=== PATIENT | female | born 1965 | race Caucasian/White ===

== ENCOUNTER 2019-09-28 07:45 | Outpatient (CLI) | payer OTHER, SELFPAY ==
--- NOTE | ~2019-09-28 | MM_ITS ---
EXAMINATION: MM screening rocio BI w will HISTORY: Screening mammogram TECHNIQUE: Craniocaudal and mediolateral oblique 3-D tomosynthesis images were obtained and synthetic 2-D images were generated. CAD analysis was submitted and interpreted. COMPARISON: Comparison to multiple prior studies sequentially, with oldest reviewed study dated 07/2012. BREAST PARENCHYMAL COMPOSITION: The breasts are heterogeneously dense, which may obscure small masses . FINDINGS: There is no evidence of suspicious mass, calcification, or architectural distortion to sugg est malignancy in either breast. There has been no suspicious interval change. IMPRESSION: 1. No mammographic evidence of malignancy. 2. Recommend routine screening mammography in one year. BI-RADS Category 1: Negative Reviewed, dictated and finalized at location A.
--- NOTE | ~2019-09-28 | DEXA_ITS ---
Bone Density Report Name: Keara Sharp Age: 54 Sex: Female Ethnicity: White Date of : 1965 Indication: postmenopausal; hysterectomy; Referring Provider: MATY CERNA Study: Bone densitometry was performed. Exam Date: September 28, 2019 Accession number: [id number] Bone Density: Region BMD T-score Z-score Classification AP Spine (L1, L2, L3) 1.145 1.2 2.1 Normal Femoral Neck (Left) 0.929 0.7 1.7 Normal Total Hip (Left) 1.092 1.2 1.8 Normal Total Hip Bilateral Avg 1.094 1.2 1.8 Normal Femoral Neck (Right) 0.900 0.5 1.4 Normal Total Hip (Right) 1.094 1.2 1.8 Normal World Health Organization criteria for BMD impression classify patients as: Normal (T-score at or above -1.0), Osteopenia (T-score between -1.0 and -2.5), or Osteoporosis (T-score at or below -2.5). 10-year Fracture Risk: FRAX not reported because: All T-scores for Spine Total, Hip Total, Femoral Neck at or above -1.0 Clinical Information Provided by Patient: Smokes Has the following medical conditions: Hysterectomy Patient maximum height was 64.5 Menopause Age: 27 Drinks caffeinated beverages Onset of menses at age 14 Number of children 2 Impression: The patient has normal bone mass. The patient has risk factors, including: smoking. Discussion: BONE DENSITY IS ABOVE THE MINIMUM DESIRABLE LEVEL AT ALL SKELETAL SITES TESTED. This patient?s bone mineral density is above the minimum desirable level (T-score -1.0 or better) at all sites measured. The patient should follow a healthful lifestyle (good nutrition with adequate calcium and vitamin D, and appropriate weight-bearing exercise). Follow-Up: Consider repeating this study in 5 years or sooner if there is some new clinical indication. Reported by: HARSHA on 09/28/2019 8:16:00 AM. Reviewed, dictated and finalized at location AAndre SOTOMAYOR
== END 2019-09-28 07:46 | disposition home or self-care (01) ==
LOC: ANHIMG 07:48
PROVIDERS: PCP Family Medicine; Visit Provider Family Medicine
DX: Z12.31 Encounter for screening mammogram for malignant neoplasm of breast (principal); Z78.0 Asymptomatic menopausal state
CPT/HCPCS: 77063; 77067; 77080

== ENCOUNTER 2019-10-07 00:56 | Outpatient (CLI) | payer OTHER, SELFPAY ==
[2019-10-07 18:07] LABS: SARS-CoV-2 RNA PCR Negative
== END 2019-10-07 00:57 | disposition home or self-care (01) ==
LOC: ANHCOVIDDT 00:56
PROVIDERS: PCP Family Medicine; Visit Provider Internal Medicine Gastroenterology
DX: Z01.812 Encounter for preprocedural laboratory examination (principal); Z11.59 Encounter for screening for other viral diseases
CPT/HCPCS: 87635; C9803; U0003

== ENCOUNTER 2019-10-09 02:21 | Day surgery (SDC) | payer OTHER, SELFPAY ==
[2019-10-09 07:10] VITALS: BP 116/61; PULSE 73; RESP 18; TEMP 36.6; O2SAT 97; BMI 33.2
--- NOTE | 2019-10-09 07:22 | WPDANESEPPF ---
Anes - Initial Pre Proc Eval Procedure: Operation Date: 10/09/19 08:30 Proposed Procedures p Screening Colonoscopy - Evan Higgins MD Date/Time: 10/09/19 07:22 Surgeon: Evan Higgins MD Pre Op Diagnosis: hx colon polyps, fam hx colon CA Patient Data Age: 54 Gender: F Height: 5 ft 4 in Weight: 87.7 kg Last Vital Signs Temp 36.6 C 10/09/19 07:10 Pulse 73 10/09/19 07:10 Resp 18 10/09/19 07:10 BP 116/61 10/09/19 07:10 Pulse Ox 97 10/09/19 07:10 Allergies Allergy/AdvReac Type Severity Reaction Status Date / Time azithromycin Allergy Mild stomach Verified 10/09/19 07:09 pain latex Allergy Mild Rash Verified 10/09/19 07:09 rosuvastatin Allergy Unknown Muscle pain Verified 10/09/19 07:09 Home Medications Medication Instructions Recorded Confirmed Type aspirin 81 mg tablet,delayed 81 mg PO DAILY 06/02/19 10/05/19 History release trazodone 150 mg tablet 150 mg PO DAILY tablet 06/02/19 10/05/19 History valacyclovir 1 gram tablet 1,000 mg PO DAILY #90 tablet 07/20/19 10/05/19 Rx paroxetine HCl 20 mg tablet 40 mg PO DAILY #90 tablet 07/29/19 10/05/19 Rx Crestor 5 mg tablet 5 mg PO DAILY #90 tablet NS 09/17/19 10/05/19 Rx Patient hx anesthesia problems: none Family hx anesthesia problems: none PMFSH Past Medical History Medical History Asthma Bronchitis Depression Deviated septum GERD (gastroesophageal reflux disease) NEGRETE (headache) Herpes Herpesviral keratitis History of chicken pox Hypercholesteremia Influenza Mild intermittent asthma with (acute) exacerbation Panic disorder Pneumonia Rectal polyp 2013 colonoscopy hemmies/no polyps/ repeat in 5 years Seizures Vertigo Surgical History Surgical History History of appendectomy History of ear surgery History of hysterectomy (~1993) partial History of sinus surgery (~2018) History of spinal surgery (~2006) Family History Family History Mother Depression Family history of malignant neoplasm of uterus Family history of malignant neoplasm of breast in first degree relative Father Carcinoma of colon Social History Social History Smoking packs per day: 0.5 Smoking cigarettes per day: 10.0 Years smoked: 40 Smoking pack-years: 20.00 Smoking status: Current every day smoker Tobacco type: cigarettes Second hand tobacco smoke exposure: Yes Alcohol intake: current Gender identity (if verbalized by the patient): Female Anes - Eval Final PreProcedure Day of Procedure 10/09/19 07:22 Patient weight: obese Heart: regular rate and rhythm Lungs: decreased breath sounds Airway: Mallampati scale class II Neurological: alert and oriented Last oral intake: >/= 8 hours ASA classification: III Emergent: no Anesthetic plan: proceed Anesthesia type and monitoring: general GIVS and standard monitoring Informed Consent: The patient's anesthetic plan and its attendant risks and benefits were discussed with the patient/family/POA. Questions were solicited and answers provided to the satisfaction of the patient/family/POA.
[2019-10-09] MEDS: LACTATED RINGERS 1,000 ML 150 ML IV CONT (07:32)
--- NOTE | 2019-10-09 07:46 | WPDGICN ---
Assessment and Plan Assessment and plan (1) Family history of colon cancer in father: Code(s): Z80.0 - Family history of malignant neoplasm of digestive organs Status: Acute Assessment and Plan: Patient has had colon polyps in the past. Her family history is significant that her father had colon cancer for these reasons surveillance colonoscopy will be performed at this time. follow-up colonoscopy at 5 year intervals is advised. (2) History of colon polyps: Code(s): Z86.010 - Personal history of colonic polyps Status: Acute GI Consult Note Consult date/time: 10/09/19 07:46 HPI: Keara Sharp is a 54 year old female seen in evaluation at the request of Dr Estrellita Han. Patient presents for surveillance colonoscopy. Patient's current weight appetite bowel movements are normal. She denies abdominal pain. She denies any blood in her stools. Her family history is significant that her father has had colon cancer. Patient herself has had colon polyps in the past. Her most recent colonoscopy was 2013. Patient currently denies any blood in her stools or bowel habits are normal. Review of Systems Review of Systems: All systems reviewed & are unremarkable except as noted in HPI and below PMFSH Past Medical History Medical History Asthma Bronchitis Depression Deviated septum GERD (gastroesophageal reflux disease) NEGRETE (headache) Herpes Herpesviral keratitis History of chicken pox Hypercholesteremia Influenza Mild intermittent asthma with (acute) exacerbation Panic disorder Pneumonia Rectal polyp 2013 colonoscopy hemmies/no polyps/ repeat in 5 years Seizures Vertigo Surgical History Surgical History History of appendectomy History of ear surgery History of hysterectomy (~1993) partial History of sinus surgery (~2019) History of spinal surgery (~2006) Family History Family History Mother Depression Family history of malignant neoplasm of uterus Family history of malignant neoplasm of breast in first degree relative Father Carcinoma of colon Social History Social History Smoking packs per day: 0.5 Smoking cigarettes per day: 10.0 Years smoked: 40 Smoking pack-years: 20.00 Smoking status: Current every day smoker Tobacco type: cigarettes Second hand tobacco smoke exposure: Yes Alcohol intake: current Gender identity (if verbalized by the patient): Female Meds Home Medications and Allergies Home Medications Medication Instructions Recorded Confirmed Type aspirin 81 mg tablet,delayed 81 mg PO DAILY 06/02/19 10/05/19 History release trazodone 150 mg tablet 150 mg PO DAILY tablet 06/02/19 10/05/19 History valacyclovir 1 gram tablet 1,000 mg PO DAILY #90 tablet 07/20/19 10/05/19 Rx paroxetine HCl 20 mg tablet 40 mg PO DAILY #90 tablet 07/29/19 10/05/19 Rx Crestor 5 mg tablet 5 mg PO DAILY #90 tablet NS 09/17/19 10/05/19 Rx Allergies Allergy/AdvReac Type Severity Reaction Status Date / Time azithromycin Allergy Mild stomach Verified 10/09/19 07:09 pain latex Allergy Mild Rash Verified 10/09/19 07:09 rosuvastatin Allergy Unknown Muscle pain Verified 10/09/19 07:09 Vital Signs Vital Signs - 24 hr 10/09/19 07:10 Temperature 97.9 F Pulse Rate 73 Respiratory Rate 18 Blood Pressure 116/61 Pulse Oximetry 97 Exam Narrative: Exam Narrative: Physical exam reveals Vital Signs to be stable. HEENT exam unremarkable. Lungs are clear to auscultation and percussion. Heart is without murmur or extra sounds. Abdominal exam bowel sounds are present soft nontender with no hepatosplenomegaly. Digital external rectal exam is normal.
[2019-10-09 08:42] VITALS: BP 136/79; PULSE 61; RESP 15; O2SAT 100
[2019-10-09 08:52] VITALS: BP 105/63; PULSE 58; RESP 20; O2SAT 97
[2019-10-09 09:02] VITALS: BP 117/73; PULSE 57; RESP 18; O2SAT 98
== END 2019-10-09 09:24 | disposition home or self-care (01) ==
PROVIDERS: PCP Family Medicine; Visit Provider Internal Medicine Gastroenterology
PROC: 0DJD8ZZ Inspection of Lower Intestinal Tract, Via Natural or Artificial Opening Endoscopic (ICD-10-PCS; CPT 45378; principal; 2019-10-09 08:30)
DX: Z12.11 Encounter for screening for malignant neoplasm of colon (principal); K62.1 Rectal polyp; K64.8 Other hemorrhoids; Z80.0 Family history of malignant neoplasm of digestive organs; E78.00 Pure hypercholesterolemia, unspecified; K21.9 Gastro-esophageal reflux disease without esophagitis; J45.20 Mild intermittent asthma, uncomplicated; F32.9 Major depressive disorder, single episode, unspecified; B00.9 Herpesviral infection, unspecified; Z79.82 Long term (current) use of aspirin; F17.210 Nicotine dependence, cigarettes, uncomplicated; E66.9 Obesity, unspecified; Z68.33 Body mass index [BMI] 33.0-33.9, adult
CPT/HCPCS: 45385; 87635; 88305; C9803; J2704; J7120; U0003

== ENCOUNTER → 2020-02-10 08:41 | Outpatient (CLI) | payer OTHER, SELFPAY ==
--- NOTE | ~2020-02-10 | MR_ITS ---
EXAMINATION: MR brain/brain stem wo/w con EXAM DATE: 02/10/2020 09:31 INDICATION: Headache pain/ persistent headaches/ wakes with headache. TECHNIQUE: Magnetic resonance imaging (MRI) of the brain/brain stem obtained without contrast. Sagit marko T1, axial diffusion, gradient echo (T2*), T1, T2, FLAIR sequences obtained. Patient was then inj ected with 17 cc intravenous Multihance contrast. Axial and coronal postcontrast T1 weighted sequence s obtained. There is no prior study for comparison. FINDINGS: There are no areas of restricted diffusion to suggest acute infarction. There is no acute hemorrhage seen on the T2*, a hemosiderin sensitive sequence. No intraparenchymal brain mass. The ve ntricles are normal in size. There are no extra-axial collections. Flow voids are seen in the cereb ral arteries on the T2-weighted sequences consistent with their expected patency. The orbits are unr emarkable. Soft tissue is unremarkable. Surgical changes from right-sided mastoidectomy. There are no areas of abnormal enhancement on the post contrast images. IMPRESSION: 1. Unremarkable brain MRI examination. Reviewed, dictated and finalized at location A. TECHNOLOGIST
[2020-02-10 09:09] LABS: Estimated Glomerular Filt Rate > 60
== END ==
PROVIDERS: Visit Provider Family Medicine
DX: R51.9 Headache, unspecified (principal)
CPT/HCPCS: 70553; A9577

== ENCOUNTER → 2020-05-26 16:53 | Outpatient (CLI) | payer OTHER, SELFPAY ==
--- NOTE | ~2020-05-26 | XR_ITS ---
EXAMINATION: XR shoulder RT min 2V DATE: 05/26/2020 17:30 INDICATION: Right shoulder pain. TECHNIQUE: 4 views of right shoulder were obtained. COMPARISON: None. FINDINGS: Bone alignment is normal. No fracture. There is mild osteoarthritis of glenohumeral joint a nd severe osteoarthritis of acromioclavicular joint. IMPRESSION: 1. Polyarticular osteoarthritis. Reviewed, dictated and finalized at location A. [employer] COUNTY ATTORNEY
--- NOTE | ~2020-05-26 | XR_ITS ---
EXAMINATION: XR shoulder LT min 2V DATE: 05/26/2020 17:30 INDICATION: Left shoulder pain. TECHNIQUE: 4 views of left shoulder were obtained. COMPARISON: None. FINDINGS: Bone alignment is normal. No fracture. There is mild osteoarthritis of glenohumeral joint a nd severe osteoarthritis of the acromioclavicular joint. There is calcific tendinitis of the rotator cuff. Calcified left hilar and mediastinal lymph nodes are consistent with old granulomatous disease. IMPRESSION: 1. Polyarticular osteoarthritis. 2. Calcific tendinitis of left rotator cuff. Reviewed, dictated and finalized at location A. UCTION OPERATIONS MANAGER
--- NOTE | ~2020-05-26 | XR_ITS ---
EXAMINATION: XR hand BI arthritis min 3V DATE: 05/26/2020 17:30 INDICATION: Right hand pain. TECHNIQUE: 4 views of right hand and 4 views of left hand were obtained. COMPARISON: None. FINDINGS: RIGHT HAND: Bone alignment is normal. No fracture. There is mild osteoarthritis of first interphalang eal joint and second-fifth distal interphalangeal joints. LEFT HAND: Bone alignment is normal. No fracture. There is mild osteoarthritis of first carpometacarp al joint, first interphalangeal joint, and second, third, and fifth distal interphalangeal joints. IMPRESSION: 1. Mild polyarticular osteoarthritis. Reviewed, dictated and finalized at location A. [employer]
== END ==
PROVIDERS: Visit Provider Family Medicine
DX: M79.641 Pain in right hand (principal); M89.49 Other hypertrophic osteoarthropathy, multiple sites; M75.32 Calcific tendinitis of left shoulder
CPT/HCPCS: 73030; 73130

== ENCOUNTER 2020-07-20 16:30 | Outpatient (RCR) | payer OTHER, SELFPAY ==
--- NOTE | 2020-06-13 10:18 | PTOPEVAL ---
PHYSICAL THERAPY EVALUATION Thank you for referring Keara Sharp to [facility].? Keara has been evaluated for the dx of nissa. shoulder and hand pain/OA. The patient is scheduled to be seen for therapy?2 x/week for 4 weeks. Please review, sign, date and return this plan of care JOSE. I agree with and certify that the following plan of care is medically necessary. Referring Physician Date Attending Provider: Estrellita Han MD *PT Outpatient Evaluation Start: 06/13/20 08:30 Freq: Status: Active Protocol: Document 06/13/20 08:30 [facility] (Rec: 06/13/20 09:42 MLV [id number]) Assessment Status Evaluation Evaluation Information Problem Diagnosis nissa. shoulder pain and hand pain Onset April 2020 Cause none Additional Evaluation Detail The patient has had pain on and off for years with occasional hand numbness. The pain became more constant and more severe April 2020. 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 The shoulder pain is aggravated by driving ( especially bus at work), reaching overhead/behind back. The pain progresses across shoulder blades. The patient uses a heating pad very regularly. 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 The patient helps with a house rehab project with her spouse. Diagnostic Tests X-Rays For This Problem Yes: severe OA nissa shoulders; hand xrays results unknown by patient Previous Treatments Previous Treatments For This Problem none Pain Assessment Timing of Pain Assessment Timing of Pain Assessment Assessment Pain Scale Pain Scale Used Numeric (1 - 10) Self Report Pain Assessment Bilateral Hand(s) Reported Pain Level 3 Pain Description Aching,Heavy,Tightness Pain Frequency Chronic,Continuous Greatest Pain Intensity 9 Pain Aggravating Factors Lifting Other Pain Aggravating Factors gripping Bilateral Shoulder(s) Reported Pain Level 0 Pain Description Achi
--- NOTE | 2020-06-24 15:25 | PCPTNOTE ---
Patient did not show up for scheduled appointment this date. Patient had eye appt. at same time. Plans to be here at next appt. on 07/04.
--- NOTE | 2020-07-18 13:46 | PCPTNOTE ---
Patient called & cancelled scheduled appointment this date due to waiting for re-eval to start aquatic.
--- NOTE | 2020-07-20 17:12 | PTOPEVAL ---
PHYSICAL THERAPY DISCHARGE SUMMARY Thank you for referring Keara Sharp to [facility].? The patient has been seen 7 visits for the dx of nissa. shoulder and hand pain. Pt has had minimal improvements and has peaked with skilled PT needs. DC PT. Please review, sign, date and return this plan of care JOSE. I agree with and certify the following plan of care. Referring Physician Date Attending Provider: Estrellita Han MD *PT Outpatient Discharge Start: 06/13/20 08:30 Freq: Status: Active Protocol: Document 07/20/20 16:24 [facility] (Rec: 07/20/20 17:03 MLV [id number]) Therapy Assessment Status Assessment Status Assessment Status Discharge Evaluation Information Problem Diagnosis nissa. 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 The patient was assessed by ortho MD and has no surgical issues. Primary MD has changed her meds and pt started new drug last night. The patient has pain through nissa. shoulders and scapulae at rest and worse with any mild activities. Pt wears medicated patches at night with partial relief. Patient reports no relief with therapy to this point and gets only temporary relief from exercises. Pt doing exercises 1 a day. Pain Assessment Pain Scale Pain Scale Used Numeric (1 - 10) Self Report Pain Assessment Bilateral Hand(s) Reported Pain Level 4 Other Pain Aggravating Factors no pattern to pain Bilateral Shoulder(s) Reported Pain Level 9 Additional Pain Comments mild guarding/inconsistent Pain Score Pain Score 4,9: Self Report Interventions Used Interventions Used By Clinicians Education,Electrical Stimulation,Exercise,Heat Pain Relief Interventions Used By Heat,Ice,Inactivity/Rest, Patient Medication Cervical and Lumbar ROM Cervical ROM Cervical Flexion (0-60) 60 Query Text:Active in Degrees Cervical Extension (0-70) 40 Query Text:Active in Degrees Cervical Lateral Flexion Right (0-50) 30 Query Text:Active in Degrees
== END 2020-07-21 07:43 | disposition home or self-care (01) ==
LOC: ANHPT 16:30
PROVIDERS: PCP Family Medicine; Visit Provider Family Medicine
DX: M25.511 Pain in right shoulder (principal); M25.512 Pain in left shoulder; M79.641 Pain in right hand; M79.642 Pain in left hand; G89.29 Other chronic pain
CPT/HCPCS: 97014; 97110; 97162; 97530; G0283

== ENCOUNTER → 2021-01-31 17:45 | Outpatient (CLI) | payer OTHER, SELFPAY ==
--- NOTE | ~2021-01-31 | MR_ITS ---
EXAMINATION: MR cervical spine wo con EXAM DATE: 01/31/2021 19:12 INDICATION: Radiculitis. Bilateral scapular pain, bilateral arm numbness. TECHNIQUE: Multi-sequential, multiplanar MR images of the cervical spine were obtained without contra st. Axial T2, axial T2 MERGE sequence. Sagittal T1, T2, T2 fat saturation images also obtained. Th ere is no prior study for comparison. FINDINGS: Surgical changes from right mastoidectomy. There is moderate loss of the C4-5 disc height, mild to moderate at C5-6. The vertebral bodies are aligned in the AP dimension. The spinal cord sign al intensity and intrinsic morphology is normal. Cervicomedullary junction is normal in appearance. T here are no suspicious marrow signal abnormalities. Level by level evaluation: C2-C3: Disc does not extend beyond the endplate margin. Uncovertebral joint arthropathy: None. Facet joint arthropathy: Mild. Neural foraminal stenosis: No stenosis. Central canal stenosis: No stenosis. C3-C4: There is a minimal diffuse disc bulge. Uncovertebral joint arthropathy: Mild right, minimal left. Facet joint arthropathy: Mild to moderate bilateral. Neural foraminal stenosis: Mild right. Central canal stenosis: Minimal. C4-C5: There is a mild diffuse disc bulge asymmetric to the right Uncovertebral joint arthropathy: Moderate right, mild to moderate left. Facet joint arthropathy: Mild to moderate bilateral. Neural foraminal stenosis: Mild to moderate right, mild left. Central canal stenosis: Mild. C5-C6: Disc does not extend beyond the endplate margin. Uncovertebral joint arthropathy: Mild bilateral. Facet joint arthropathy: Mild to moderate bilateral. Neural foraminal stenosis: No stenosis. Central canal stenosis: No stenosis. C6-C7: There is a mild diffuse disc bulge asymmetric to the right Uncovertebral joint arthropathy: Mild to moderate right, mild left. Facet joint arthropathy: Mild bilateral. Neural foraminal stenosis: Mild right. Central canal stenosis: Mild. C7-T1: Disc does not extend beyond the endplate margin. Uncovertebral joint arthropathy: Mild bilateral. Facet joint arthropathy: Mild to moderate left, mild right. Neural foraminal stenosis: No stenosis. Central canal stenosis: No stenosis. IMPRESSION: 1. Mild to moderate cervical spondylosis. Reviewed, dictated and finalized at location A.
== END ==
PROVIDERS: PCP Family Medicine; Visit Provider Physical Medicine & Rehabilitation Pain Medicine
DX: M54.40 Lumbago with sciatica, unspecified side (principal); M47.892 Other spondylosis, cervical region
CPT/HCPCS: 72141

== ENCOUNTER → 2021-03-13 10:45 | Outpatient (CLI) | payer OTHER, SELFPAY ==
--- NOTE | ~2021-03-13 | MR_ITS ---
EXAMINATION: MR thoracic spine wo con DATE: 03/13/2021 12:00 INDICATION: Dorsalgia, unspecified. TECHNIQUE: Magnetic resonance imaging (MRI) of the thoracic spine was performed without intravenous c ontrast. Sagittal localizer T1-weighted FSE of the cervical spine was obtained. Thoracic spine sequen ilan included sagittal T2-weighted FSE, sagittal T1-weighted FSE, sagittal T2-weighted FS FSE, and axi al T2-weighted FSE. COMPARISON: Cervical spine MRI 01/31/2021 FINDINGS: There is 5 degrees dextrocurvature of thoracic spine. There is kyphosis of thoracic spine. There is moderately decreased disc height at T4-T5, severely decreased disc height from T5-T6 through T8-T9, and moderately decreased disc height from T9-T10 through T12-L1 with endplate remodeling. The re is mildly decreased disc height at multiple levels in upper thoracic spine with endplate remodelin g. The discs are bulging from T5-T6 through T12-L1 with mild central canal stenosis. There is multile merlene facet joint osteoarthritis, severe bilaterally at T2-T3. There is mild neural foraminal stenosis bilaterally at T2-T3. The spinal cord signal intensity is normal. IMPRESSION: 1. Severe thoracic spondylosis. Reviewed, dictated and finalized at location A. OR SALES REPRESENTATIVE
== END ==
PROVIDERS: PCP Family Medicine; Visit Provider Physical Medicine & Rehabilitation Pain Medicine
DX: M47.894 Other spondylosis, thoracic region (principal)
CPT/HCPCS: 72146

== ENCOUNTER → 2021-06-23 11:52 | Outpatient (CLI) | payer OTHER, SELFPAY ==
--- NOTE | ~2021-06-23 | XR_ITS ---
XR sacroiliac joints min 3V DATE: 06/23/2021 13:00 INDICATION: Back pain TECHNIQUE: AP and bilateral oblique views COMPARISON: None FINDINGS: The sacroiliac joints are normally aligned. No fracture or dislocation, erosive change or a nkylosis is noted. Status post interbody spinal fusion at L4-5 and L5-S1. IMPRESSION: Unremarkable sacroiliac joints Reviewed, dictated and finalized at Location A. Reviewed, dictated and finalized at location A.
--- NOTE | ~2021-06-23 | XR_ITS ---
XR hip BI 2V w AP pelvis DATE: 06/23/2021 13:00 INDICATION: Right hip pain. Trochanteric bursitis. TECHNIQUE: AP pelvis. AP and lateral views of each hip. COMPARISON: None FINDINGS: Status post interbody spinal fusion at L4-5 and L5-S1. The pubic symphysis and sacroiliac joints are intact. Hip joint spaces are symmetric and relatively well preserved. No fracture or dislocation, avascular necrosis or bone destruction of either hip. IMPRESSION: No significant abnormality of either hip Reviewed, dictated and finalized at location A.
--- NOTE | ~2021-06-23 | XR_ITS ---
XR lumbar spine min 4V DATE: 06/23/2021 13:00 INDICATION: Right hip pain TECHNIQUE: AP, lateral, coned lateral lumbosacral and bilateral oblique views COMPARISON: None FINDINGS: There is mild thoracolumbar levoscoliosis. There is degenerative spurring of the lower thoracic spine and lumbar spine. Status post surgical interbody spinal fusion at L4-5 and L5-S1.. Mild degenerative disc disease at th e remaining lumbar interspaces. No fracture or bone destruction or spondylolisthesis. The lumbar pedicles are intact. The sacroiliac joints appear unremarkable. IMPRESSION: Levoscoliosis Status post interbody spinal fusion at L4-5 and L5-S1 Mild degenerative disc disease at the remaining lumbar interspaces Reviewed, dictated and finalized at location A.
== END ==
PROVIDERS: Visit Provider Family Medicine
DX: G89.29 Other chronic pain (principal); M53.3 Sacrococcygeal disorders, not elsewhere classified; M70.61 Trochanteric bursitis, right hip; M70.62 Trochanteric bursitis, left hip; Z98.1 Arthrodesis status; M51.36 Other intervertebral disc degeneration, lumbar region
CPT/HCPCS: 72110; 72202; 73521

== ENCOUNTER → 2021-07-10 10:03 | Outpatient (CLI) | payer OTHER, SELFPAY ==
--- NOTE | ~2021-07-10 | CT_ITS ---
EXAMINATION:CT lung screening DATE: 07/10/2021 10:24 INDICATION: Personal history of nicotine dependence. Smoker who quit 1 year ago with 40 pack year his tory. TECHNIQUE: Computed tomography (CT) of the chest was performed without intravenous contrast. Automate d exposure control and iterative reconstruction technique were employed. The dose-length product (DLP ) was 173.80 mGy-cm. COMPARISON: CT abdomen and pelvis 06/15/2016 FINDINGS: There is mild atelectasis bilaterally. A calcified left lung nodule and calcified left beth r and mediastinal lymph nodes are consistent with old granulomatous disease. No pleural effusion. The heart size is normal. No pericardial effusion. There is a small sliding hiatal hernia. There is aletha re thoracic spondylosis. There is mild chronic anterior wedging of multiple vertebral bodies. IMPRESSION: 1. Lung-RADS category 1: Negative. Continue annual screening with noncontrast low-dose chest CT in 12 months. Reviewed, dictated and finalized at location A. IMPRESSION: 1. Lung-RADS category 1: Negative. Continue annual screening with noncontrast l ow-dose chest CT in 12 months.
== END ==
PROVIDERS: PCP Family Medicine; Visit Provider Physician Assistant
DX: Z12.2 Encounter for screening for malignant neoplasm of respiratory organs (principal); Z87.891 Personal history of nicotine dependence
CPT/HCPCS: 71271

== ENCOUNTER 2021-11-08 09:00 | Outpatient (RCR) | payer OTHER, SELFPAY ==
--- NOTE | 2021-09-13 10:57 | PTOPEVAL ---
PHYSICAL THERAPY INITIAL EVALUATION. Thank you for referring Keara Sharp to [facility].? The patient is scheduled to be seen for therapy? 2x/week for 4 weeks. Please review, sign, date and return this plan of care JOSE. I agree with and certify that the following plan of care is medically necessary. Referring Physician Date Attending Provider: Estrellita Han MD *PT Outpatient Evaluation Start: 09/13/21 Evaluation Information Diagnosis Polyarthritis, fibromyalgia Onset chronic Subjective Information Pt report a hx of DDD Query Text:As Reported By Patient/ throughout her spine, with Family intermittent spinal stenosis both in cervical and lumbar, polyarthritis, Jeovanny hip bursitis, and fibromyalgia. 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 She states when she performs as much as she can she needs to rest for the day, however too much inactivity causes her to be stiff and painful afterwards. Pt reports her pain is the best in the morning with just mild pain in her hands, she states by the end of the day her body hurts so bad it feels like her bones are going to break. Previous Treatments Previous Treatments For This Problem Pt states 3 bouts of prior therapy Pain Assessment Self Report Pain Assessment Generalized Reported Pain Level 8 Pain Description Aching,Sharp Pain Frequency Chronic Lowest Pain Intensity 4 Greatest Pain Intensity 11 Cervical and Lumbar ROM Cervical ROM Reason Not Measured WFL/Left,WFL/Right Cervical ROM Comments increased time to complete ROM d/t pain per pt Lumbar ROM Reason Not Measured WFL/Left,WFL/Right Lumbar Flexion Active Ankle Query Text:Hands to: Lumbar Comments increased time to complete Upper Extremity Range of Motion Gross Upper Extremity Range of Motion B shoulder flexion ~120 Comments B shoulder abduction ~90 Lower Extremity Range of Motion General Lower Extremity Range of Motion WFL/Left,WFL/Right Lower Extremity Muscle Strength Testing Gross Lower Extremity Strength BLE grossly 3+/5 - very
--- NOTE | 2021-09-22 11:03 | PCPTNOTE ---
Patient called & cancelled scheduled appointment this date due to her hip bursitis.
--- NOTE | 2021-10-10 11:56 | PTOPEVAL ---
PHYSICAL THERAPY PROGRESS REPORT. Thank you for referring Keara Sharp to [facility] [place] The patient is scheduled to be seen for therapy? 2x/week for 4weeks. Please review, sign, date and return this plan of care JOSE. I agree with and certify that the following plan of care is medically necessary. Referring Physician Date Attending Provider: Estrellita Han MD Evaluation Information Diagnosis Polyarthritis, fibromyalgia Onset chronic Subjective Information Pt states she is doing okay, Query Text:As Reported By Patient/ she states her shoulders are a Family little sore today. She states yesterday she mowed her lawn, planted plants, and was able to make dinner as well after that. She states she also did not need to take a muscle relaxer. A little aches and pains, but nothing major . Pt states she liked aquatic therapy, and states it works well. Pain Assessment Generalized Reported Pain Level 4 Greatest Pain Intensity 8 Cervical and Lumbar ROM Cervical ROM WFL/Left,WFL/Right Cervical ROM Comments no increase pain per report Lumbar ROM Reason Not Measured WFL/Left,WFL/Right Lumbar Flexion Active Ankle Lumbar Comments increased time to complete, d/ t soreness Upper Extremity Range of Motion Gross Upper Extremity Range of Motion B shoulder flexion ~140 Comments B shoulder abduction ~95 Lower Extremity Range of Motion General Lower Extremity Range of Motion WFL/Left,WFL/Right Lower Extremity Muscle Strength Testing Gross Lower Extremity Strength nissa hip flexion 3+/5 - very minimal resistance needed nissa knee flexion/extension 4-/ 5 Balance Assessment Timed Up and Go Test (TUG) (Seconds) 13 Assistive Devices None Comments Initially: 19s without AD 10/10/21: 13s without AD 5 Time Sit to Stand 5 Time Sit to Stand Comments Initially: 33s Without the use Query Text:Normative Data: If Greater of UEs Than 15 Seconds, 74% Increase Risk for 10/10/21: 18s without the use Recurrent Falls of UEs Gait Assessment Ambulation Assistive Devices None Other Gait Observations decreased gait speed, decreased arm swing on R, decreased trunk rotation, mild nissa hip ext rot 2 Minute Walk Total Distance Walked (feet) 415 2 Minute Walk Gait Speed Score (fe
--- NOTE | 2021-10-30 12:37 | PCPTNOTE ---
On 10/30/21, the student, Ortiz Coley, provided care and completed [facility] documentation on this patient. I have reviewed the student's documentation and agree with the findings.
--- NOTE | 2021-11-01 13:06 | PCPTNOTE ---
Patient called & cancelled scheduled appointment 30minutes after start time stating she over slept and her body wasn't feeling it today.
--- NOTE | 2021-11-08 09:51 | PTOPEVAL ---
PHYSICAL THERAPY PROGRESS REPORT AND DISCHARGE SUMMARY. Thank you for referring Keara Sharp to [facility].? The patient is to be discharged from skilled therapy services at this time. Please review, sign, date and return this plan of care JOSE. I agree with and certify that the following plan of care is medically necessary. Referring Physician Date Attending Provider: Estrellita Han MD *PT Outpatient Evaluation Start: 09/13/21 Evaluation Information Diagnosis Polyosteoarthritis, fibromyalgia Onset chronic Subjective Information Pt states she is having a Query Text:As Reported By Patient/ rough day and a rough week Family this week. Pt states her rough weeks are about the same as they were prior to starting therapy. Pt reports the same intensity and frequency of good weeks and bad weeks. Pt states last week she was able to make chicken and dumplings from scratch. Pt reports having a headache today as well. Pt continues to report positive results after pool therapy, and 3 days of pain after completing a session on land. Pain Assessment Generalized Reported Pain Level 9 Pain Frequency Chronic Greatest Pain Intensity 10 Cervical and Lumbar ROM Cervical ROM WFL/Left,WFL/Right Cervical ROM Comments no increase pain per report Lumbar ROM WFL/Left,WFL/Right Lumbar Flexion Active Ankle Lumbar Comments increased time to complete, d/ t soreness Upper Extremity Range of Motion Gross Upper Extremity Range of Motion B shoulder flexion ~120, Comments increased time to complete d/t pain B shoulder abduction ~85, increase time to complete d/t pain this date Lower Extremity Range of Motion General Lower Extremity Range of Motion WFL/Left,WFL/Right Lower Extremity Muscle Strength Testing Gross Lower Extremity Strength nissa hip flexion 4-/5 nissa knee flexion/extension 3+/5 pt demonstrates good functional strength, increased time to complete Upper Extremity Muscle Strength Testing Gross Upper Extremity Strength Comments BUE grossly 3+/5 Posture Posture Evaluation View Posterior
== END 2021-11-08 12:34 | disposition home or self-care (01) ==
LOC: ANHPT 09:00
PROVIDERS: PCP Family Medicine; Visit Provider Family Medicine
DX: M79.7 Fibromyalgia (principal); M15.9 Polyosteoarthritis, unspecified; G89.29 Other chronic pain
CPT/HCPCS: 97014; 97110; 97113; 97161; 97530; G0283

== ENCOUNTER 2022-05-22 15:25 | Outpatient (CLI) | payer OTHER, SELFPAY ==
--- NOTE | ~2022-05-22 | MM_ITS ---
EXAMINATION: MM screening rocio BI w will HISTORY: Screening mammogram TECHNIQUE: Craniocaudal and mediolateral oblique 3-D tomosynthesis images were obtained and synthetic 2-D images were generated. CAD analysis was submitted and interpreted. COMPARISON: 09/28/2019, 03/2015 bilateral screening mammogram examinations BREAST PARENCHYMAL COMPOSITION: The breasts are heterogeneously dense, which may obscure small masses . FINDINGS: Biopsy marker on the right; history of prior benign right breast biopsy. Stable bilateral m ammographic asymmetry since 03/2015. There is no evidence of suspicious mass, calcification, or arch itectural distortion to suggest malignancy in either breast. There has been no suspicious interval ch michel. IMPRESSION: 1. No mammographic evidence of malignancy. 2. Recommend routine screening mammography in one year. BI-RADS Category 2: Benign finding(s). Reviewed, dictated and finalized at location A. EVEL PROVIDER
== END 2022-05-22 15:26 | disposition home or self-care (01) ==
PROVIDERS: PCP Family Medicine; Visit Provider Family Medicine
DX: Z12.31 Encounter for screening mammogram for malignant neoplasm of breast (principal)
CPT/HCPCS: 77063; 77067

== ENCOUNTER 2022-07-20 10:07 | Outpatient (CLI) | payer OTHER, SELFPAY ==
--- NOTE | ~2022-07-20 | CT_ITS ---
EXAMINATION: CT lung screening DATE: 07/20/2022 10:28 INDICATION: Lung cancer screening. History of smoking. TECHNIQUE: Computed tomography (CT) of the chest was performed without intravenous contrast. The dose -length product was 226.91 mGy-cm. Automated exposure control and iterative reconstruction technique were employed. COMPARISON: CT dated 07/10/2021 FINDINGS: Heart size normal. No significant pleural or pericardial effusion. There is evidence for ch ronic granulomatous disease. There is left adrenal thickening, likely hyperplasia. The spleen, liver, pancreas, right adrenal gland and visualized aspects of the kidneys are unremarkable. No thoracic ly mphadenopathy. No endobronchial lesions. No noncalcified pulmonary nodules are identified. Moderate t horacic spondylosis. IMPRESSION: 1. Lung-RADS category 1: Negative. Continue annual screening with noncontrast low-dose chest CT in 12 months. Reviewed, dictated and finalized at location A. IMPRESSION: 1. Lung-RADS category 1: Negative. Continue annual screening with noncontrast l ow-dose chest CT in 12 months.
== END 2022-07-20 10:08 | disposition home or self-care (01) ==
PROVIDERS: PCP Family Medicine; Visit Provider Physician Assistant
DX: Z12.2 Encounter for screening for malignant neoplasm of respiratory organs (principal); Z87.891 Personal history of nicotine dependence
CPT/HCPCS: 71271

== ENCOUNTER 2023-07-09 08:53 | Outpatient (CLI) | payer OTHER, MEDICARE, SELFPAY ==
--- NOTE | ~2023-07-09 | CT_ITS ---
EXAMINATION: CT pelvis wo con DATE: 07/09/2023 09:18 INDICATION: Sacroiliitis, not elsewhere classified. TECHNIQUE: Computed tomography (CT) of the pelvis was performed without intravenous contrast. Automat ed exposure control and iterative reconstruction technique were employed. The dose-length product was 599.89 mGy-cm. COMPARISON: None FINDINGS: There are no dilated loops of bowel. There are no pathologically enlarged lymph nodes. Ther e is no free intraperitoneal fluid. There are changes of anterior fusion procedures at L4-L5 and L5-S 1. There is moderate osteoarthritis of the sacroiliac joints. There is mild osteoarthritis of the hip s. Osteitis pubis is noted. IMPRESSION: 1. Moderate osteoarthritis of the sacroiliac joints. No evidence of inflammatory arthropathy. Reviewed, dictated and finalized at location E. IMPRESSION: 1. Moderate osteoarthritis of the sacroiliac joints. No evidence of inflammator y arthropathy.
--- NOTE | ~2023-07-09 | XR_ITS ---
EXAMINATION: XR pelvis 1-2V DATE: 07/09/2023 09:10 INDICATION: Sacroiliitis. TECHNIQUE: An anteroposterior view of the pelvis was obtained. COMPARISON: Pelvis CT 07/09/23 FINDINGS: There is thoracolumbar levoscoliosis. There are changes of anterior fusion procedures at L4 -L5 and L5-S1. There is moderate osteoarthritis of the sacroiliac joints. The hip joint spaces are no rmal. IMPRESSION: 1. Moderate osteoarthritis of the sacroiliac joints. Reviewed, dictated and finalized at location E.
== END 2023-07-09 08:54 ==
PROVIDERS: PCP Family Medicine; Visit Provider Physical Medicine & Rehabilitation Pain Medicine
DX: M46.1 Sacroiliitis, not elsewhere classified (principal); M53.3 Sacrococcygeal disorders, not elsewhere classified
CPT/HCPCS: 72170; 72192

== ENCOUNTER 2023-07-22 10:26 | Outpatient (CLI) | payer OTHER, MEDICARE, SELFPAY ==
--- NOTE | ~2023-07-22 | CT_ITS ---
EXAMINATION:CT lung screening DATE: 07/22/2023 10:52 INDICATION: Personal history of nicotine dependence. Smoker who quit 3 years ago with 40 pack year hi story. TECHNIQUE: Computed tomography (CT) of the chest was performed without intravenous contrast. Automate d exposure control and iterative reconstruction technique were employed. The dose-length product (DLP ) was 166.73 mGy-cm. COMPARISON: Chest CT 07/20/22 FINDINGS: There is mild emphysema. Calcified left lung nodules and calcified left hilar and mediastin al lymph nodes are consistent with old granulomatous disease. No pleural effusion. The heart size is normal. No pericardial effusion. There is a small sliding hiatal hernia. There is severe thoracic spo ndylosis. There is mild chronic anterior wedging of multiple vertebral bodies. IMPRESSION: 1. Lung-RADS category 1: Negative. Continue annual screening with noncontrast low-dose chest CT in 12 months. Reviewed, dictated and finalized at location E. IMPRESSION: 1. Lung-RADS category 1: Negative. Continue annual screening with noncontrast l ow-dose chest CT in 12 months.
== END 2023-07-22 10:27 | disposition home or self-care (01) ==
LOC: ANHIMG 10:31
PROVIDERS: PCP Family Medicine; Visit Provider Physician Assistant
DX: Z12.2 Encounter for screening for malignant neoplasm of respiratory organs (principal); Z87.891 Personal history of nicotine dependence
CPT/HCPCS: 71271

== ENCOUNTER 2023-08-09 14:08 | Outpatient (CLI) | payer OTHER, MEDICARE, SELFPAY ==
--- NOTE | ~2023-08-09 | CT_ITS ---
EXAMINATION: CT lumbar spine wo con DATE: 08/09/2023 14:22 INDICATION: Lumbar radicular pain. TECHNIQUE: Computed tomography (CT) of the lumbar spine was performed without intravenous contrast. A utomated exposure control and iterative reconstruction technique were employed. The dose-length produ ct was 785.96 mGy-cm. COMPARISON: None FINDINGS: There is 8 degrees levocurvature of thoracolumbar spine. There is mild chronic anterior wed ging of L1 vertebral body. There are changes of anterior fusion procedures at L4-L5 and L5-S1. There is severely decreased disc height at L1-L2, moderately decreased disc height at L2-L3, and mildly dec reased disc height at L3-L4. The following disc levels are specifically discussed: L1-L2: The disc is bulging. There is moderate bilateral facet joint osteoarthritis. There is mild nissa ateral neural foraminal stenosis. There is mild central canal stenosis. L2-L3: The disc is bulging. There is severe bilateral facet joint osteoarthritis. There is mild bilat eral neural foraminal stenosis. There is mild central canal stenosis. L3-L4: The disc is bulging. There is severe bilateral facet joint osteoarthritis. There is mild bilat eral neural foraminal stenosis. There is mild central canal stenosis. L4-L5: There is severe bilateral facet joint osteoarthritis. There is mild bilateral neural foraminal stenosis. There is mild central canal stenosis. L5-S1: There is severe bilateral facet joint osteoarthritis. There is mild bilateral neural foraminal stenosis. There is mild central canal stenosis. IMPRESSION: 1. Severe lumbar spondylosis. 2. Anterior fusion procedures at L4-L5 and L5-S1. Reviewed, dictated and finalized at location A.
== END 2023-08-09 14:09 ==
PROVIDERS: PCP Family Medicine; Visit Provider Physical Medicine & Rehabilitation Pain Medicine
DX: M43.06 Spondylolysis, lumbar region (principal); Z98.1 Arthrodesis status
CPT/HCPCS: 72131

== ENCOUNTER 2023-12-04 08:29 | Outpatient (CLI) | payer OTHER, MEDICARE, SELFPAY ==
--- NOTE | ~2023-12-04 | MM_ITS ---
EXAMINATION: MM screening rocio BI w will HISTORY: Screening TECHNIQUE: Craniocaudal and mediolateral oblique 3-D tomosynthesis images were obtained and synthetic 2-D images were generated. CAD analysis was submitted and interpreted. COMPARISON: Comparison to multiple prior studies sequentially, with oldest reviewed study dated 06/2014. BREAST PARENCHYMAL COMPOSITION: Not dense: There are scattered areas of fibroglandular density. FINDINGS: There is no evidence of suspicious mass, calcification, or architectural distortion to sugg est malignancy in either breast. There has been no suspicious interval change. IMPRESSION: 1. No mammographic evidence of malignancy. 2. Recommend routine screening mammography in one year. BI-RADS Category 1: Negative Reviewed, dictated and finalized at location B.
== END 2023-12-04 08:30 | disposition home or self-care (01) ==
LOC: ANHIMG 08:32
PROVIDERS: PCP Family Medicine; Visit Provider Family Medicine
DX: Z12.31 Encounter for screening mammogram for malignant neoplasm of breast (principal)
CPT/HCPCS: 77063; 77067

== ENCOUNTER 2024-07-29 08:52 | Outpatient (CLI) | payer OTHER, MEDICARE, SELFPAY ==
--- NOTE | ~2024-07-29 | CT_ITS ---
CT Scan of the Chest without Contrast: Clinical Indication: Lung cancer screening, nicotine dependence Technique: Contiguous sections were acquired throughout the chest without intravenous contrast. Dose reduction technique was used on this scan by utilizing automated exposure control and iterative recon struction technique. The dose-length product (DLP) was 152.06 mGy-cm. COMPARISON: 07/22/2023 Findings: There is no evidence of any significant mediastinal, hilar or axillary lymphadenopathy. Calcified med iastinal and left hilar lymph nodes are present. There is no evidence of pleural or pericardial effusion. The lungs are clear, aside from calcified left lower lobe granuloma. Images through the upper abdomen reveal low-density left adrenal nodule, compatible with adenoma. Impression: Lung RADS 1: Negative. 12 month follow-up screening CT advised. Reviewed, dictated and finalized at [facility]. Impression: Lung RADS 1: Negative. 12 month follow-up screening CT advised.
--- OUTSIDE RECORDS SUMMARY | 2024-07-29 09:15 | XMS_ITS ---
Author Organization [facility] daniel Address [address] [facility] [address] [place] [address] Care Team Providers Care Skirt Clipper Name Role Phone Guille BARBOSA, Estrellita Primary Care Provider Unav ailable Dalia Barber [phone] REASON FOR VISIT yd/3 month follow up/flc Encounters Encounter Location Date Provider Diagnosis [facility] [address] [address] [place] [address] 05/15/2024 Dalia Barber Plan Of Treatment Next Appt Details Provider Name:Dalia Barber, 08/05 01:45:00 PM, [address] [facility] [address], [place], [address], Progress Notes * VERAKeara HERNÁNDEZ BDOB:1965 (59 yo F)Acc No.[id number]:05/15/2024 Progress Notes Patient: Erika PONDKeara Provider: Eddie BARBER MD :1965 A ge:58 Y S ex:Female Date:05/15/2024 Address:[address], [address], [facility] Pcp:Estrellita Han MD Subjective: * Chief Complaints: * 1 . Yd/3 month follow up/flc. * Medical History: Objective: * Vitals: Assessment: Plan: * Treatment: * Billing Information: * Visit Code: * Procedure Codes: * Electronic signature of Dalia Barber MD on 07/29/2024 at 09:15 AM CDT Sign off status: Pending * Provider: Eddie BARBER MD Date: 0 05/15/2024 Generated for Ryan cotter/Justin/Saulo on: 0 07/29/2024 09:15 AM CDT
--- OUTSIDE RECORDS SUMMARY | 2024-07-29 09:15 | XMS_ITS | Clinical Summary ---
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 Gender Identity Not on file Sexual Orientation Not on file Plan of Treatment Health Maintenance Due Date Last Done Comments Breast Cancer Screening-Mammogram 1965 Cervical Cancer Screening 1965 Colon Cancer Screening-Colonoscopy 1965 Depression Screening 1965 Hepatitis C Screening 1966 Hepatitis B Screening 1984 Regular Well Visit/Exam 18-64 1984 Zoster Vaccine (1 of 2) 2016 Covid-19 Vaccine (3 - 2023- season) 2023 07/27/2020, 07/05/2020 DTaP/Tdap/Td Vaccine (2 - Td or Tdap) 09/07/2029 09/08/2019 Pneumococcal vaccine <65 Aged Out 08/09/2022, 05/0 04/2022 No longer eligible based on patient's age to complete this topic Influenza Vaccine Completed 02/12/2024, , 01/24/2022, Additional history exists Insurance [facility] CHOICE PLUS MEDICARE Care Teams [employer] Clerk Relationship Specialty Start Date End Date Estrellita Han MD PCP - General 08/01/16
--- OUTSIDE RECORDS SUMMARY | 2024-07-29 09:15 | XMS_ITS | Patient Health Record ---
Author Organization [facility] daniel Address [address] [place] [address] Care Team Providers Care Ethanol Operator Name Role Phone Estrellita Han MD Primary Care Provider Unav ailDalia Ron Unavailable [phone] Allergies Allergen (clinical drug ingredient) Drug/Non Drug Allergy documented on EMR Reaction Allergy Type Onset Date Status ezetimibe Zetia Unknown Drug Allergy Active azithromycin Azithromycin Unknown Drug Allergy A ctive Latex Latex Unknown Allergy Active Substance with 4-wblygal-6-methylgluta ryl-coenzyme A reductase inhibitor mechanism of action (substance) Statins Unknown Drug Allergy Active Results Component Value Reference Range Notes eGFR Reviewed date:02/16/2024 12:16:27 PM Interpretation: Performing Lab:[facility] , [address] [facility] [address] Notes/Report: eGFR 72 >=60 mL/min/1.73 m2 Interpretive Data Reference Interval Normal >/= 90 mL/min/1.73m2 Mildly decreased* 60 - 89 mL/min/1.73m2 Mildly to moderately decreased 45 - 59 mL/min/1.73m2 Moderately to severely decreased 30 - 44 mL/min/1.73m2 Severely decreased 15 - 29 mL/min/1.73m2 Kidney Failure < 15 mL/min/1.73m2 *Relative to young adult level Estimated glomerular filtration rate is determined by the 2020 CKD-EPI equation recommended by the National Kidney [employer] (A Unifying Approach to GFR Estimation: Recommendations of the NKF-ASK Task Force on Reassessing the Inclusion of Race in Diagnosing Kidney Disease, JASN 2020). The CKD-EPI equation should not be used for patients with unstable renal function and has not been validated in children and those over 70. Current interpretive data was last reviewed 2021. Differential Automated Reviewed date:02/16/2024 12:16:20 PM Interpretation: Performing Lab:[facility] , [address] [facility] [address] Notes/Report: Neut Abs 2.4 1.5-6.5 K/cumm ImmGran Abs 0.0 0.0-0.1 K/cumm Lymphocyte Abs 1.9 0.8-3.3 K/cumm [place] Abs 0.5 0.2-0.8 K/cumm Eos Abs 0.1 0.0-0.5 K/cumm Baso Abs 0.0 0.0-0.1 K/cumm Neut Pct 48.6 Interpretive Data Percent cell count reference ranges are not reported, since discordance with absolute values may lead to misinterpretation of CBC data. Current Interpretive Data was last revised on 2017. ImmGran Pct 0.2 Interpretive Data Percent cell count reference ranges are not reported, since discordance with absolute values may lead to misinterpretation of CBC data. Current Interpretive Data was last revised on 2017. Lymph Pct 39.0 Interpretive Data Percent cell count reference ranges are not reported, since discordance with absolute values may lead to misinterpretation of CBC data. Current Interpretive Data was last revised on 2017. [place] Pct 9.3 Interpretive Data Percent cell count reference ranges are not reported, since discordance with absolute values may lead to misinterpretation of CBC data. Current Interpretive Data was last revised on 2017. Eos Pct 2.1 Interpretive Data Percent cell count reference ranges are not reported, since discordance with absolute values may lead to misinterpretation of CBC data. Current Interpretive Data was last revised on 2017. Baso Pct 0.8 Interpretive Data Percent cell count reference ranges are not reported, since discordance with absolute values may lead to misinterpretation of CBC data. Current Interpretive Data was last revised on 2017. SSB Ab Reviewed date:02/16/2024 12:17:57 PM Interpretation: Performing Lab:[facility] , [address] [place] [address]. [facility] [address] Notes/Report: SS B Antibody <0.2 <=0.9 Ab Index Interpretive Data Negative: < 1.0 Ab Index Positive: > or = 1.0 Ab Index Current interpretive data was last revised on 2016. SSA Ab Reviewed date:02/16/2024 12:18:03 PM Interpretation: Performing Lab:[facility] , [address] [place] [address]. [facility] [id number] Notes/Report: SS A Antibody <0.2 <=0.9 Ab Index Interpretive Data Negative: < 1.0 Ab Index Positive: > or = 1.0 Ab Index Current interpretive data was last revised on 2016. Sed Rate Reviewed date:02/16/2024 12:18:32 PM Interpretation: Performing Lab:[facility] , [address] [place] [address]. [facility] [address] Notes/Report: ESR 14 1-30 mm/hr Rheumatoid Factor Reviewed date:02/16/2024 12:18:51 PM Interpretation: Performing Lab:[facility] , [address] [place] [address]. [facility] [address] Notes/Report: RF, Sammy <10 <=15 IUnits/mL QTB Gold Reviewed date:02/17/2024 01:04:43 PM Interpretation: Performing Lab:[facility] , [address] [place] [address]. [facility] [address] Notes/Report: QuantiFERON TB Gold Negative Negative No interferon-gamma response to M. tuberculosis antigens was detected. Latent infection with M. tuberculosis is unlikely. A single negative result does not exclude infection with M. tuberculosis. In patients at high risk for M.tuberculosis infection, a second test should be considered in accordance with the 2017 ATS/IDSA/CDC Clinical Practice Guidelines for Diagnosis of Tuberculosis in Adults and Children [Jairoinsohn DM et. al. Clin. Infect. Dis. 2017;64(2):111-115]. The reference range for the 'TB1 Ag minus Nil Result' and 'TB2 Ag minus Nil Result' is an Interferon-gamma level <0.35 IU/mL. TB-Nil 0.02 TB2-Nil -0.02 Mitogen-Nil 9.97 NIL 0.03 Test Performed by: [facility] [address] [place] [address] Medical Instrument Technician: Smitha Angulo Ph.D.; CLIA# [id number] G6PD Ql Reviewed date:02/16/2024 12:18:09 PM Interpretation: Performing Lab:[facility] , [facility] [facility]. [place] [address] Notes/Report: G6PD, Qual Normal Normal Interp data: G6PD activity should be interpreted in the context of a patient's hematocrit. Hematocrit < 20% may lead to a falsely deficient result, while hematocrit > 50% may lead to a falsely normal result. Current interpretive data was last revised on 2019. Testing performed by: [facility], [address] [place]., [address] Creatine Kinase Reviewed date:02/16/2024 12:18:38 PM Interpretation: Performing Lab:[facility] , [address] [place] [address]. [place] [address] Notes/Report: Total CK 89 30-200 Units/L Comprehensive metabolic pane l (CMP) Reviewed date:02/16/2024 12:18:27 PM Interpretation: Performing Lab:[facility] , [address] [place] [address]. [place] [address] Notes/Report: Sodium 143 135-145 mmol/L Plasma Potassium 4.5 3.3-4.9 mmol/L Chloride 106 97-110 mmol/L Total CO2 25 22-32 mmol/L Anion Gap 12 2-15 mmol/L BUN 16 6-25 mg/dL Creatinine 0.93 0.60-1.10 mg/dL Glucose 101 70-199 mg/dL Interpretive Data Fasting glucose >/= 126 mg/dl is diagnostic for diabetes. Fasting is defined as no caloric intake for at least 8 hours. Fasting glucose between 100 mg/dl to 125 mg/dl is diagnostic of prediabetes. In a patient with classic symptoms of hyperglycemia or hyperglycemic crisis, a random glucose >/= 200 mg/dl is diagnostic for diabetes. In the absence of unequivocal hyperglycemia, results should be confirmed by repeat testing. The classification and Diagnosis of Diabetes Diabetes Care 202; 46: S19-S40. Current interpretive data was last revised 2022. Total Calcium 9.4 8.5-10.3 mg/dL Total Bilirubin 0.3 0.1-1.2 mg/dL Plasma Total Protein 7.2 6.5-8.5 g/dL Albumin 4.5 3.5-5.0 g/dL Alkaline Phosphatase 118 40-130 Units/L ALT 13 7-45 Units/L AST 27 10-45 Units/L CBC w auto diff Reviewed date:02/16/2024 12:18:17 PM Interpretation: Performing Lab:[facility] , [address] [place] [address]. [facility] [address] Notes/Report: WBC 4.8 3.8-9.9 K/cumm Hgb 14.0 11.9-15.5 g/dL Hct 42.4 35.6-45.5 % Platelet Ct 214 150-400 K/cumm MPV 11.1 9.1-12.3 fL RBC 4.31 3.90-5.20 M/cumm MCV 98.4 81.3-96.4 fL MCH 32.5 27.1-33.3 pg MCHC 33.0 32.3-35.7 g/dL RDW CV 13.8 11.1-14.9 % RDW SD 50.5 35.7-48.1 fL NRBC Abs Auto 0.00 0.00-0.01 K/cumm C Reactive Protein Reviewed date:02/16/2024 12:18:44 PM Interpretation: Performing Lab:[facility] , [address] [place] [address]. [facility] [address] Notes/Report: C-Reactive Protein <3.0 <=10.0 mg/L MARIA GUADALUPE reflex titer pattern ALEXIS + dsDNA Reviewed date:02/17/2024 12:56:12 PM Interpretation: Performing Lab:[facility] , [address] [place] [address]. [facility] [address] Notes/Report: MARIA GUADALUPE, Qual Negative Interpretive Data Normal range for MARIA GUADALUPE Qualitative Antibody = Negative. 1. MARIA GUADALUPE is performed using indirect immunofluorescence against HEp-2 cells 2. MARIA GUADALUPE titers are performed on all positive qualitative results. 3. A significantly positive MARIA GUADALUPE result is defined as a positive nuclear fluorescence at a titer of 1:80 or greater. 4. 15% of normal people above age 65 have significantly positive MARIA GUADALUPE results. 5% or less of normal people age 65 or under have significantly positive MARIA GUADALUPE results. Current interpretive data was last revised on 2019. Testing performed by: [facility], [address] [place]., [address] Reason For Referral No Information Medications Medication SIG (Take, Route, Frequency, Duration) Notes Start Date End Date Status Hydroxychloroquine Sulfate 200 MG as directed Orally twice a day Active DULoxetine HCl 60 MG 1 capsule Orally twice a day for 30 day(s) Active valACYclovir HCl 1 GM 1 tablet Orally On ce a day for 10 day(s) Active traZODone HCl 150 MG 1 tablet at bedtime Orally Once a day for 30 day(s) Active Nabumetone 750 MG as directed Orally twice a day Active Leflunomide 20 MG 1 tablet Orally Once a day for 30 days 06/02/2024 08/31/2024 Active PARoxetine HCl 20 MG 1 tablet in the morning Orally Once a day for 30 day(s) Active Pregabalin 150 MG TAKE 1 CAPSULE BY MOUTH TWICE DAILY for 30 06/15/2024 Active Multivitamin Adult Extra C Active Social History Tobacco Control (Standard) Question Answer Notes Additional Findings: Tobacco user e-cigarette Problems Problem Type SNOMED Code ICD Code Onset Dates Problem Status W/U Status Risk Notes Problem 276210799 Rheumatoid arthritis without rheumatoid factor, multiple sites (M06.09) Active confirmed Problem [id number] Fibromyalgia (M79.7) Active confirmed Vital Signs Heart Rate 88 /min 06/02/2024 Temperature 98.0 degrees Fahrenheit 06/02/2024 Blood pressure diastolic 70 mm Hg 06/02/2024 Oximetry 95 % 06/02/2024 Height-cm 164.46 cm 06/02/2024 Weight-kg 93.79 kg 06/02/2024 Height 64.75 in 06/02/2024 Blood pressure systolic 128 mm Hg 06/02/2024 Weight 206.8 lbs 06/02/2024 BMI 34.68 kg/m2 06/02/2024 Encounters Encounter Location Date Provider Diagnosis [facility] [address] [place] [address] 02/14/2024 Dalia Schwartz Rheumatoid arthritis without rheumatoid factor, multiple sites M06.09 ; Fibromyalgia M79.7 and High risk medication use Z79.899 [facility] [address] [place] [address] 03/02/2024 Dalia Schwartz Rheumatoid arthritis without rheumatoid factor, multiple sites M06.09 ; Fibromyalgia M79.7 ; High risk medication use Z79.899 and Decreased GFR R94.4 [facility] [address] [place] [address] 06/02/2024 Dalia Schwartz Rheumatoid arthritis without rheumatoid factor, multiple sites M06.09 ; Fibromyalgia M79.7 ; High risk medication use Z79.899 and Decreased GFR R94.4 Assessments Encounter Date Diagnosis (ICD Code) Assessment Notes Treatment Notes Treatment Clinical Notes Section Notes 03/02/2024 Rheumatoid arthritis without rheumatoid factor, multiple sites (ICD-10 - M06.09) labs discussed with patient, pain better with higher dose of lyrica, will continue lyrica 150mg bid and plaquenil, advised to change relafen to prn due to decreased GFR, return in 3 months 03/02/2024 Fibromyalgia (ICD-10 - M79.7) labs discussed with patient, pain better with higher dose of lyrica, will continue lyrica 150mg bid and plaquenil, advised to change relafen to prn due to decreased GFR, return in 3 months 06/02/2024 Rheumatoid arthritis without rheumatoid factor, multiple sites (ICD-10 - M06.09) symptomatic, start arava 20mg/day, continue plaquenil, cymbalta and lyrica, return in 2 months 02/14/2024 Rheumatoid arthritis without rheumatoid factor, multiple sites (ICD-10 - M06.09) 58 year old female with seronegative rheumatoid arthritis and fibromyalgia. She failed methotrexate. Plaquenil has helped some. Labs will be ordered. She will increase lyrica to 150mg bid. She will continue relafen and cymbalta. Follow up virtual visit will be scheduled. Thank you for referring this patient. cc Dr. Estrellita Han 02/14/2024 Fibromyalgia (ICD-10 - M79.7) 58 year old female with seronegative rheumatoid arthritis and fibromyalgia. She failed methotrexate. Plaquenil has helped some. Labs will be ordered. She will increase lyrica to 150mg bid. She will continue relafen and cymbalta. Follow up virtual visit will be scheduled. Thank you for referring this patient. cc Dr. Estrellita Han 02/14/2024 High risk medication use (ICD-10 - Z79.899) 58 year old female with seronegative rheumatoid arthritis and fibromyalgia. She failed methotrexate. Plaquenil has helped some. Labs will be ordered. She will increase lyrica to 150mg bid. She will continue relafen and cymbalta. Follow up virtual visit will be scheduled. Thank you for referring this patient. cc Dr. Estrellita Han 06/02/2024 Fibromyalgia (ICD-10 - M79.7) symptomatic, start arava 20mg/day, continue plaquenil, cymbalta and lyrica, return in 2 months 03/02/2024 High risk medication use (ICD-10 - Z79.899) labs discussed with patient, pain better with higher dose of lyrica, will continue lyrica 150mg bid and plaquenil, advised to change relafen to prn due to decreased GFR, return in 3 months 03/02/2024 Decreased GFR (ICD-10 - R94.4) labs discussed with patient, pain better with higher dose of lyrica, will continue lyrica 150mg bid and plaquenil, advised to change relafen to prn due to decreased GFR, return in 3 months 06/02/2024 High risk medication use (ICD-10 - Z79.899) symptomatic, start arava 20mg/day, continue plaquenil, cymbalta and lyrica, return in 2 months 06/02/2024 Decreased GFR (ICD-10 - R94.4) symptomatic, start arava 20mg/day, continue plaquenil, cymbalta and lyrica, return in 2 months Plan Of Treatment Pending Test Test Name Order Date HLA-B27 ANTIGEN (528) 02/14/2024 Next Appt Details Provider Name:Dalia Efren, 08/05 01:45:00 PM, [address], [place], [address], Insurance Providers Payer Name Payer Address Payer Phone Subscriber Number Group Number Insured Name Patient Relationship to Insured Coverage Start Date Coverage End Date [facility] [employer] [address] [address] [place] [address] [id number] Keara Sharp Self - patient is the insured Medicare [address] [address] [place] [address] [id number] Keara Sharp Self - patient is the insured Medical (General) History Medical History History ICD Code seronegative rheumatoid arth ritis, fibromyalgia, asthma, anxiety, depression, pneumonia, hyperlipidemia, GERD, herpetic keratitis, seizure, headaches uterine cancer Surgical History Surgery Date(Month/Year) appendectomy, ear surgery, S I joint fusion, hysterectomy, sinus surgery, back surgery, breast cancer
--- OUTSIDE RECORDS SUMMARY | 2024-07-29 09:15 | XMS_ITS ---
Author Organization [facility] daniel Address [address] [address] [address] [place] [address] Care Team Providers Care Cook Boat Name Role Phone Estrellita Han MD Primary Care Provider Unav ailable Dalia Barber Unavailable [phone] Allergies Allergen (clinical drug ingredient) Drug/Non Drug Allergy documented on EMR Reaction Allergy Type Onset Date Status ezetimibe Zetia Unknown Drug Allergy Active azithromycin Azithromycin Unknown Drug Allergy A ctive Latex Latex Unknown Allergy Active Substance with 1-eumsvlm-7-methylgluta ryl-coenzyme A reductase inhibitor mechanism of action (substance) Statins Unknown Drug Allergy Active REASON FOR VISIT rheumatoid arthritis, fibromyalgia, referred by Dr. Estrellita Han Medications Medication SIG (Take, Route, Frequency, Duration) Notes Start Date End Date Status Hydroxychloroquine Sulfate 200 MG as directed Orally twice a day Active Pregabalin 150 MG 1 capsule Orally twice a day Active valACYclovir HCl 1 GM 1 tablet Orally On ce a day for 10 day(s) Active Leflunomide 20 MG 1 tablet Orally Once a day for 30 days 06/02/2024 08/31/2024 Active Multivitamin Adult Extra C Active DULoxetine HCl 60 MG 1 capsule Orally twice a day for 30 day(s) Active traZODone HCl 150 MG 1 tablet at bedtime Orally Once a day for 30 day(s) Active Nabumetone 750 MG as directed Orally twice a day Active PARoxetine HCl 20 MG 1 tablet in the morning Orally Once a day for 30 day(s) Active Social History Tobacco Control (Standard) Question Answer Notes Additional Findings: Tobacco user e-cigarette Vital Signs Temperature 98.0 degrees Fahrenheit 06/03/19 25 Blood pressure systolic 128 mm Hg 06/03/19 25 Blood pressure diastolic 70 mm Hg 025 Heart Rate 88 /min 06/02/2024 Height 64.75 in 06/02/2024 Weight 206.8 lbs 06/02/2024 BMI 34.68 kg/m2 06/02/2024 Oximetry 95 % 06/02/2024 Height-cm 164.46 cm 06/02/2024 Weight-kg 93.79 kg 06/02/2024 Encounters Encounter Location Date Provider Diagnosis [facility] [address] [place] [address] 06/02/2024 Dalia Barber Rheumatoid arthritis without rheumatoid factor, multiple sites M06.09 ; Fibromyalgia M79.7 ; High risk medication use Z79.899 and Decreased GFR R94.4 Assessments Encounter Date Diagnosis (ICD Code) Assessment Notes Treatment Notes Treatment Clinical Notes Section Notes 06/02/2024 Rheumatoid arthritis without rheumatoid factor, multiple sites (ICD-10 - M06.09) symptomatic, start arava 20mg/day, continue plaquenil, cymbalta and lyrica, return in 2 months 06/02/2024 Fibromyalgia (ICD-10 - M79.7) symptomatic, start arava 20mg/day, continue plaquenil, cymbalta and lyrica, return in 2 months 06/02/2024 High risk medication use (ICD-10 - Z79.899) symptomatic, start arava 20mg/day, continue plaquenil, cymbalta and lyrica, return in 2 months 06/02/2024 Decreased GFR (ICD-10 - R94.4) symptomatic, start arava 20mg/day, continue plaquenil, cymbalta and lyrica, return in 2 months Plan Of Treatment Medication Medication Name Sig Start Date Stop Date Notes Leflunomide 20 MG 1 tablet Orally Once a day for 30 days 0 06/02/2024 08/31/2024 Next Appt Details Follow Up: 2 Months, Reason: Provider Name:Dalia Barber, 08/05 01:45:00 PM, [address], [place], [address], Progress Notes * Keara VERA BDOB:1965 (58 yo F)Acc No.[id number]:06/02/2024 Progress Notes Patient: Keara SANCHEZ Provider: Eddie BARBER MD :1965 A ge:58 Y S ex:Female Date:06/02/2024 Address:[address] [place] [address], [place] [address] Pcp:Estrellita Han MD Subjective: * Chief Complaints: * R heumatoid arthritis, fibromyalgiareferred by Dr. Estrellita Han * HPI: j oint pain: on plaquenil 400mg/day, hips, shoulders and toes hurting, no joint swelling, am stiffness: 30 minutes She was diagnosed with seronegative rheumatoid arthritis by Dr. Whitney in 2022. She failed methotrexate. it caused hair loss fibromyalgia: on cymbalta 60mg bid, lyrica 150mg bid, relafen prn (decreased dose due to kidney) She sees Dr. Destiny Joiner. She had trigger point injections and fusion of SI joints. 02/14/2024, MARIA GUADALUPE (-), RF (-), SSA/SSB (-), HLA-B27 (-), ESR, CRP and CK normal, QFN-TB (-), WBC/Hb/plts normal, Cr 0.93, GFR 72, AST/ALT normal eye exam: 12/2023. * ROS: G eneral / Constitutional: Patient denies f goldy, chills. P atient complains of?fatigue. M usculoskeletal: Patient complains of s ee HPI. S kin: Patient denies r kourtney. * Medical History: * Surgical History: a ppendectomy, ear surgery, SI joint fusion, hysterectomy, sinus surgery, back surgery, breast cancer * Hospitalization/Major Diagno stic Procedure: * Family History: depression, uterine cancer, colon cancer, breast cancer, cholangiocarcinoma. * Social History: T obacco Use: T obacco Control (Standard) A dditional Findings: Tobacco user e -cigarette. D rug/Alcohol: D o you drink alcohol?: Socially. H ousehold: H ousehold M arital status: , Number of children in household: 0 .. M iscellaneous: E xercise: No. * Medications: T akingMultivitamin Adult Extra C Pregabalin 150 MG Capsule 1 capsule Orally twice a day valACYclovir HCl 1 GM Tablet 1 tablet Orally Once a day Hydroxychloroquine Sulfate 200 MG Tablet as directed Orally twice a day DULoxetine HCl 60 MG Capsule Delayed Release Particles 1 capsule Orally twice a day Nabumetone 750 MG Tablet as directed Orally twice a day PARoxetine HCl 20 MG Tablet 1 tablet in the morning Orally Once a day traZODone HCl 150 MG Tablet 1 tablet at bedtime Orally Once a day Medication List reviewed and reconciled with the patientTaking Multivitamin Adult Extra C Taking Pregabalin 150 MG Capsule 1 capsule Orally twice a day Taking valACYclovir HCl 1 GM Tablet 1 tablet Orally Once a day Taking Hydroxychloroquine Sulfate 200 MG Tablet as directed Orally twice a day Taking DULoxetine HCl 60 MG Capsule Delayed Release Particles 1 capsule Orally twice a day Taking Nabumetone 750 MG Tablet as directed Orally twice a day Taking PARoxetine HCl 20 MG Tablet 1 tablet in the morning Orally Once a day Taking traZODone HCl 150 MG Tablet 1 tablet at bedtime Orally Once a day Medication List reviewed and reconciled with the patient * Allergies: A mukulthromycinWes[Allergies Verified] Objective: * Vitals: B P:128/70mm Hg, HR:88/min, Temp:98.0F, Oxygen sat %:95%, Wt:206.8lbs, Wt- k.79kg, Ht:64.75in, Ht-cm:164.46cm, BMI:34.68Index, Body Surface Area:2.07. * Examination: G eneral Examination: General appearance: a lert, well-nourished and in no acute distress. Head: n ormocephalic, atraumatic. Eyes: n ormal. Skin: n o rash. Lungs: r espiratory effort normal. N eurology: Speech: n ormal. P sychiatry: Affect / mood: a ppropriate. R heumatology: b il PIPsd and MCPs tender, no swelling, L knee and R 1st MTP tender. Assessment: * Assessment: 1. R heumatoid arthritis without rheumatoid factor, multiple sites - M06.09 (Primary) ? 2 . F ibromyalgia - M79.7 3 . H igh risk medication use - Z79.899? 4. D ecreased GFR - R94.4 symptomatic, start arava 20m g/day, continue plaquenil, cymbalta and lyrica, return in 2 months Plan: * Treatment: * Procedure Codes: * Follow Up: 2 Months * Billing Information: * Visit Code: 89292 Office Visit, Est Pt., Level 4. * Procedure Codes: * TER HELPER Sign off status: Completed true * Provider: Eddie BARBER MD Date: 06/02/2024 Generated for Ryan cotter/Justin/Saulo on: 07/29/2024 09:14 AM CDT History and Physical Notes * HPI (History of Present Illness) Category Sub-Category Detail Notes Category Not es joint pain on plaquenil 400mg/day, hips, shoulders and toes hurting, no joint swelling, am stiffness: 30 minutes She was diagnosed with seronegative rheumatoid arthritis by Dr. Whitney in 2022. She failed methotrexate. it caused hair loss fibromyalgia: on cymbalta 60mg bid, lyrica 150mg bid, relafen prn (decreased dose due to kidney) She sees Dr. Destiny Joiner. She had trigger point injections and fusion of SI joints. 02/14/2024, MARIA GUADALUPE (-), RF (-), SSA/SSB (-), HLA-B27 (-), ESR, CRP and CK normal, QFN-TB (-), WBC/Hb/plts normal, Cr 0.93, GFR 72, AST/ALT normal eye exam: 12/2023 Examination Category Sub-Category Detail Notes Category Not es Rheumatology nissa PIPsd and MCPs tender, no swelling, L knee and R 1st MTP tender Neurology Speech: normal Psychiatry Affect / mood: appropriate General Examination General appearance: alert, w ell-nourished and in no acute distress Head: normocephalic, atrau matic Eyes: normal Lungs: respiratory effort n ormal Skin: no rash
--- OUTSIDE RECORDS SUMMARY | 2024-07-29 09:15 | XMS_ITS | Referral Summary ---
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
--- OUTSIDE RECORDS SUMMARY | 2024-07-29 09:16 | XMS_ITS ---
Author Organization [facility] daniel Address [address] [place] [address] Care Team Providers Care Bowling Ball Molder Name Role Phone Guille BARBOSA, Estrellita Primary Care Provider Unav ailable Dalia Barber Unavailable [phone] Allergies Allergen (clinical drug ingredient) Drug/Non Drug Allergy documented on EMR Reaction Allergy Type Onset Date Status ezetimibe Zetia Unknown Drug Allergy Active azithromycin Azithromycin Unknown Drug Allergy A ctive Latex Latex Unknown Allergy Active Substance with 3-mijwzmm-9-methylgluta ryl-coenzyme A reductase inhibitor mechanism of action (substance) Statins Unknown Drug Allergy Active REASON FOR VISIT yd/2 week follow up/flc, rheumatoid arthritis, fibromyalgia, referred by Dr. Estrellita Han Medications Medication SIG (Take, Route, Frequency, Duration) Notes Start Date End Date Status Pregabalin 150 MG 1 capsule Orally twice a day for 30 days 02/14/2024 05/14/2024 Active valACYclovir HCl 1 GM 1 tablet Orally On ce a day for 10 day(s) Active Hydroxychloroquine Sulfate 200 MG as directed Orally twice a day Active Multivitamin Adult Extra C Active Pregabalin 100 MG 1 capsule Orally twice a day Active PARoxetine HCl 20 MG 1 tablet in the morning Orally Once a day for 30 day(s) Active traZODone HCl 150 MG 1 tablet at bedtime Orally Once a day for 30 day(s) Active DULoxetine HCl 60 MG 1 capsule Orally twice a day for 30 day(s) Active Nabumetone 750 MG as directed Orally twice a day Active Social History Tobacco Control (Standard) Question Answer Notes Additional Findings: Tobacco user e-cigarette Encounters Encounter Location Date Provider Diagnosis [facility] [address] [place] [address] 03/02/2024 Dalia Barber Rheumatoid arthritis without rheumatoid factor, [...] decreased GFR, return in 3 months 03/02/2024 High risk medication use (ICD-10 [...] to decreased GFR, return in 3 months Plan Of Treatment Next Appt Details Follow Up: 3 Months, Reason: Provider Name:Dalia Efren, 08/05 01:45:00 PM, [address], [place], [address], Progress Notes * Keara VERA BDOB:1965 (58 yo F)Acc No.[id number]:03/02/2024 Patient: Keara SANCHEZ Provider: Eddie BARBER MD :1965 A ge:58 Y S ex:Female Date:03/02/2024 Address:[address] [place] [address], [address] , [facility] Pcp:Estrellita Han MD Subjective: * Chief Complaints: * Y d/2 week follow up/flcRheumatoid arthritis, fibromyalgiareferred by Dr. Estrellita Han * HPI: G eneral Follow up: Synchronous video/audio telecommunication with [employer] Patient has agreed to telehealth visit and is aware insurance will be billed for this visit Location: patient at home, physician in office. j oint pain: pain better after increasing dose of lyrica to 150mg bid, hands and shoulders better She was diagnosed with seronegative rheumatoid arthritis by Dr. Whitney in 2022. She failed methotrexate. fibromyalgia: on cymbalta 60mg bid, lyrica 150mg bid, relafen 750mg bid. She sees Dr. Destiny Joiner. She had trigger point injections and fusion of SI joints. 02/14/2024, MARIA GUADALUPE (-), RF (-), SSA/SSB (-), HLA-B27 (-), ESR, CRP and CK normal, QFN-TB (-), WBC/Hb/plts normal, Cr 0.93, GFR 72, AST/ALT normal eye exam: 12/2023. * ROS: G eneral / Constitutional: Patient denies c hange in appetite, chills, fatigue, fever, weight loss, weakness. C omments S HPI for details. M usculoskeletal: Comments [facility] for details. S kin: Comments [facility] for details . N eurologic: Patient denies d izziness, gait abnormality, headache, tingling / numbness . * Medical History: * Surgical History: a ppendectomy, ear surgery, SI joint fusion, hysterectomy, sinus surgery, back surgery * Hospitalization/Major Diagno stic Procedure: * Family [...] Medications: T akingMultivitamin Adult Extra C Pregabalin 100 MG Capsule 1 capsule Orally twice a [...] tablet at bedtime Orally Once a day Pregabalin 150 MG Capsule 1 capsule Orally twice a day , stop date 05/14/2024Taking Multivitamin Adult Extra C Taking Pregabalin 100 MG Capsule 1 capsule Orally twice a [...] tablet at bedtime Orally Once a day Taking Pregabalin 150 MG Capsule 1 capsule Orally twice a day , stop date 05/14/2024 * Allergies: A mukulthromycinLatexMatilde[Allergies Verified] Objective: * Vitals: * P ast Orders: L ab:MARIA GUADALUPE reflex titer pattern ALEXIS + dsDNA (Order Date - 02/14/2024) (Collection Date & Time - 02/14/2024 11:44 AM) Value Reference Range MARIA GUADALUPE Ql Negative - L ab:C Reactive Protein (Order Date - 02/14/2024) (Collection Date & Time - 02/14/2024 11:44 AM) Value Reference Range CRP <3.0 <=10.0 - mg/L L ab:CBC w auto diff (Order Date - 02/14/2024) (Collection Date & Time - 02/14/2024 11:44 AM) Value Reference Range WBC 4.8 3.8-9.9 - K/cumm RBC 4.31 3.90-5.20 - M/cumm Hgb 14.0 11.9-15.5 - g/dL Hct 42.4 35.6-45.5 - % MCV 98.4 H 81.3-96.4 - fL MCH 32.5 27.1-33.3 - pg MCHC 33.0 32.3-35.7 - g/dL Plt 214 150-400 - K/cumm MPV 11.1 9.1-12.3 - fL RDW CV 13.8 11.1-14.9 - % RDW SD 50.5 H 35.7-48.1 - fL NRBC Abs Auto 0.00 0.00-0.01 - K/cumm L ab:Comprehensive metabolic panel (CMP) (Order Date - 02/14/2024) (Collection Date & Time - 02/14/2024 11:44 AM) Value Reference Range BUN 16 6-25 - mg/dL ALT 13 7-45 - Units/L Albumin 4.5 3.5-5.0 - g/dL Alk Phos 118 40-130 - Units/L AST 27 10-45 - Units/L Bili Totl 0.3 0.1-1.2 - mg/dL Calcium 9.4 8.5-10.3 - mg/dL Chloride 106 97-110 - mmol/L Glucose 101 70-199 - mg/dL Potassium Plas 4.5 3.3-4.9 - mmol/L CO2 Totl 25 22-32 - mmol/L Protein Plas 7.2 6.5-8.5 - g/dL Creatinine 0.93 0.60-1.10 - mg/dL Sodium 143 135-145 - mmol/L Anion Gap 12 2-15 - mmol/L L ab:Creatine Kinase (Order Date - 02/14/2024) (Collection Date & Time - 02/14/2024 11:44 AM) Value Reference Range CK Totl 89 30-200 - Units/L L ab:G6PD Ql (Order Date - 02/14/2024) (Collection Date & Time - 02/14/2024 11:44 AM) Value Reference Range G6PD Ql Normal Normal - L ab:QTB Gold (Order Date - 02/14/2024) (Collection Date & Time - 02/14/2024 11:44 AM) Value Reference Range NIL 0.03 - IUnits/mL Mitogen-Nil 9.97 - IUnits/mL TB-Nil 0.02 - IUnits/mL QuantiFERON TB Gold Negative Negative - TB2-Nil -0.02 - IUnits/mL L ab:Rheumatoid Factor (Order Date - 02/14/2024) (Collection Date & Time - 02/14/2024 11:44 AM) Value Reference Range RF Qn <10 <=15 - IUnits/mL L ab:Sed Rate (Order Date - 02/14/2024) (Collection Date & Time - 02/14/2024 11:44 AM) Value Reference Range ESR 14 1-30 - mm/hr L ab:SSA Ab (Order Date - 02/14/2024) (Collection Date & Time - 02/14/2024 11:44 AM) Value Reference Range SS A Ab <0.2 <=0.9 - Ab Index L ab:SSB Ab (Order Date - 02/14/2024) (Collection Date & Time - 02/14/2024 11:44 AM) Value Reference Range SS B Ab <0.2 <=0.9 - Ab Index L ab:Differential Automated (Order Date - 02/14/2024) (Collection Date & Time - 02/14/2024 11:44 AM) Value Reference Range Neut Abs 2.4 1.5-6.5 - K/cumm ImmGran Abs 0.0 0.0-0.1 - K/cumm Perry Abs 0.5 0.2-0.8 - K/cumm Eos Abs 0.1 0.0-0.5 - K/cumm Baso Abs 0.0 0.0-0.1 - K/cumm Neut Pct 48.6 - % ImmGran Pct 0.2 - % Lymph Pct 39.0 - % Perry Pct 9.3 - % Eos Pct 2.1 - % Baso Pct 0.8 - % Lymphocyte Abs 1.9 0.8-3.3 - K/cumm L ab:eGFR (Order Date - 02/14/2024) (Collection Date & Time - 02/14/2024 11:44 AM) Value Reference Range eGFR 72 >=60 - mL/min/1.73 m 2 * Examination: G eneral Examination: General appearance: a lert, well-nourished and in no acute distress. Head: n ormocephalic, atraumatic. Eyes: n ormal. Skin: n o rash. Lungs: r espiratory effort normal. P sychiatry: Affect / mood: n ormal affect, normal mood. ? N eurology: s peech normal. Assessment: * Assessment: 1. R heumatoid arthritis without rheumatoid factor, multiple sites - M06.09 (Primary) ? 2 . F ibromyalgia - M79.7 3 . H igh risk medication use - Z79.899? 4. D ecreased GFR - R94.4 labs discussed with patient, pain better with higher dose of lyrica, will continue lyrica 150mg bid and plaquenil, advised to change relafen to prn due to decreased GFR, return in 3 months Plan: * Treatment: * Procedure Codes: * Follow Up: 3 Months * Billing Information: * Visit Code: 04778 Office Visit, Est Pt., Level 4. Modifiers: 95 * Procedure Codes: * OR ENVIRONMENTAL CONSULTANT Sign off status: Completed true * Provider: Eddie BARBER MD Date: 05/03/2023 Generated for Ryan cotter/Justin/eTransmitting on: 0 07/29/2024 09:15 AM CDT History and Physical Notes * HPI (History of Present Illness) Category Sub-Category Detail Notes Category Not es General Follow up [facility] Patient has agreed to telehealth visit and is aware insurance will be billed for this visit Location: patient at home, physician in office joint pain pain better after increasing dose of lyrica to 150mg bid, hands and shoulders better She was diagnosed with seronegative rheumatoid arthritis by Dr. Whitney in 2022. She failed methotrexate. fibromyalgia: on cymbalta 60mg bid, lyrica 150mg bid, relafen 750mg bid. She sees Dr. Destiny Joiner. She had trigger point injections and fusion of SI joints. 02/14/2024, MARIA GUADALUPE (-), RF (-), SSA/SSB (-), HLA-B27 (-), ESR, CRP and CK normal, QFN-TB (-), WBC/Hb/plts normal, Cr 0.93, GFR 72, AST/ALT normal eye exam: 12/2023 Examination Category Sub-Category Detail Notes Category Not es Neurology speech normal Psychiatry Affect / mood: normal affect, normal mood General Examination General appearance: alert, w ell-nourished and in no acute distress Head: normocephalic, atrau matic Eyes: normal Lungs: respiratory effort n ormal Skin: no rash
== END 2024-07-29 08:53 | disposition home or self-care (01) ==
LOC: ANHIMG 08:53
PROVIDERS: PCP Family Medicine; Visit Provider Physician Assistant
DX: Z12.2 Encounter for screening for malignant neoplasm of respiratory organs (principal); Z87.891 Personal history of nicotine dependence
CPT/HCPCS: 71271

== ENCOUNTER 2024-08-20 02:16 | Day surgery (SDC) | payer OTHER, MEDICARE, SELFPAY ==
[2024-08-13 09:21] VITALS: BMI 35.5
--- OUTSIDE RECORDS SUMMARY | 2024-08-20 02:20 | XMS_ITS | Continuity of Care Document ---
Author Organization [facility] Address [address] [place] [address] Phone Care Team Providers Care Supervisor Cytogenetic Laboratory Name Role Phone Glen BARBOSA, Daniel Unavailable Unavailable Advance Directives Directive Yes / No Effective Date File Name No Information Encounters Encounter Description Practice Location Reason(s) For Visit Diagnoses Date Provider Providers Copied on Encounter [facility], [address], [place], [place], [id number] , tel: [phone] [facility] No Information [address], [place], [address], [place]. tel: [phone] [facility], [address], [place], [place], [id number] , tel: [phone] [facility] Abnormal CT scan, gastrointestinal tract [phone], [place], [address], [place]. tel: [phone] Family History Family Member Type Diagnosis Age At Onset No Information Payers Payer name Insurance type Covered democrat ID Authoriza tion(s) No Information Social History Type Description Quantity Date Captured Comments Sex Female Smoking Status No Information Chief Complaint And Reason For Visit No Information Reason For Referral Reason For Referral No Information History Of Present Illness Encounter Date Complaint History Of Prese nt Illness No Information Functional Status Date Functional Assessmen t No Information Instructions Date Instruction Additional Infor mation No Information Assessments Type Assessment Date No Information Patient Care Teams Name Effective Dates (start - stop) Status Members No Information
--- OUTSIDE RECORDS SUMMARY | 2024-08-20 02:20 | XMS_ITS ---
Author Organization [facility] daniel Address [address] [facility] [address] [place] [address] Care Team Providers Care Hvac Service Manager Name Role Phone Estrellita Han MD Primary Care Provider Unav ailable Dalia Barber Unavailable [phone] Allergies Allergen (clinical drug ingredient) Drug/Non Drug Allergy documented on EMR Reaction Allergy Type Onset Date Status ezetimibe Zetia Unknown Drug Allergy Active azithromycin Azithromycin Unknown Drug Allergy A ctive Latex Latex Unknown Allergy Active Substance with 7-dfwzhiw-9-methylgluta ryl-coenzyme A reductase inhibitor mechanism of action [...] 06/02/2024 Encounters Encounter Location Date Provider Diagnosis [facility] [address] [place] [address] 06/02/2024 Dalia Efren Rheumatoid arthritis without rheumatoid factor, multiple sites [...] Up: 2 Months, Reason: Provider Name:Dalia Barber, 11/04 11:45:00 AM, [address], [place], [address], Progress Notes * Keara VERA BDOB:1965 (58 yo F)Acc No.[id number]:06/02/2024 Progress Notes Patient: Keara SANCHEZ Provider: Eddie BARBER MD :1965 A ge:58 Y S ex:Female Date:06/02/2024 Address:[address] [place] [address], [place] [address] Pcp:Estrellita Han MD Subjective: * Chief Complaints: [...] Months * Billing Information: * Visit Code: 71000 Office Visit, Est Pt., Level 4. * Procedure Codes: * HER PRODUCTS SUPERVISOR Sign off status: Completed true * Provider: Eddie BARBER MD Date: 06/02/2024 Generated for Ryan cotter/Justin/Saulo on: 08/20/2024 02:20 AM CDT History and Physical Notes * [...]
--- OUTSIDE RECORDS SUMMARY | 2024-08-20 02:20 | XMS_ITS ---
Author Organization [facility] daniel Address [address] [place] [address] Care Team Providers Care Bridal Sales Consultant Name Role Phone Guille BARBOSA, Estrellita Primary Care Provider Unav ailable Dalia Barber Unavailable [phone] Allergies Allergen (clinical drug ingredient) Drug/Non Drug Allergy documented on EMR Reaction Allergy Type Onset Date Status ezetimibe Zetia Unknown Drug Allergy Active azithromycin Azithromycin Unknown Drug Allergy A ctive Latex Latex Unknown Allergy Active Substance with 2-fpwbixm-1-methylgluta ryl-coenzyme A reductase inhibitor mechanism of action (substance) Statins Unknown Drug Allergy Active Results Component Value Reference Range Notes CBC W/DIFF Reviewed date:08/06/2024 08:47:53 AM Interpretation:Lab Result Generalized Performing Lab:[facility], [address], [place], [address] Notes/Report: WBC 3.5 3.5-10.5 10'3/uL RBC 4.13 (Based on docume nted legal sex) 3.80-5.20 10'6/uL HGB 12.9 (Based on docume nted legal sex) 11.6-15.4 g/dL HCT 39.9 (Based on docume nted legal sex) 34.0-45.0 % MCV 96.6 80.0-99.0 fL MCH 31.2 27.0-34.0 pg MCHC 32.3 32.0-35.5 g/dL RDW 14.4 11.0-15.0 % PLT 213 150-400 10'3/uL MPV 10.9 8.8-12.1 fL Neutrophils 36.5 34.0-73.0 % Lymphocytes 43.9 15.0-50.0 % Monocytes 13.0 1.0-15.0 % Eosinophils 5.2 0.0-8.0 % Basophils 1.4 0.0-2.0 % Immature Granulocytes 0.0 No defined reference range % Immature Granulocytes (IG) represents automated enumeration of Metamyelocytes, Myelocytes and Promyelocytes when IG is < 5%. Blasts are not included in IG and reported separately if present. Absolute Neutrophils 1.3 1.5-8.0 10'3/uL Absolute Lymphocytes 1.5 1.0-4.0 10'3/uL Absolute Monocytes 0.5 0.2-1.0 10'3/uL Absolute Eosinophils 0.2 0.0-0.6 10'3/uL Absolute Basophils 0.1 0.0-0.3 10'3/uL Absolute Immature Granulocytes 0.0 0.00-0.10 10'3/uL Reference ranges for nonbinary/intersex or unspecified gender patients have not been established. Please refer to the following table for ranges established for cisgender patients and evaluate in the clinical context of the individual patient: https://labhandbook.nm.org/ [email or web address] CMP(COMPREHENSIVE METABOLIC PANEL) Reviewed date:08/06/2024 08:47:53 AM Interpretation:Lab Result Generalized Performing Lab:[facility], [address] [place] [address], [address] Notes/Report: Sodium 143 133-146 mmol/L Potassium 4.1 3.5-5.1 mmol/L Chloride 107 98-107 mmol/L Carbon Dioxide 28 21-31 mmol/L Anion Gap 8 4-13 mmol/L Blood Urea Nitrogen 15 7-25 mg/dL Creatinine 0.80 0.60-1.30 mg/dL eGFRcr (CKD-EPI 2020) 85 >=60 mL/min/1.73 m2 Calcium 8.9 8.3-10.5 mg/dL Glucose 100 70-100 mg/dL Protein, Total 6.4 6.4-8.3 g/dL Albumin 4.0 3.5-5.0 g/dL ALT 14 9-43 units/L Alkaline Phosphatase 109 34-104 units/L AST 24 13-39 units/L Bilirubin, Total 0.4 0.2-1.2 mg/dL REASON FOR VISIT yd/2 month follow up/flc, rheumatoid arthritis, fibromyalgia, referred by Dr. Estrellita Han Medications Medication SIG (Take, Route, Frequency, Duration) Notes Start Date End Date Status traZODone HCl 150 MG 1 tablet at bedtime Orally Once a day for 30 day(s) Active Leflunomide 20 MG 1 tablet Orally Once a day for 30 days Active Pregabalin 150 MG TAKE 1 CAPSULE BY MOUTH TWICE DAILY for 30 days 08/05/2024 11/03/2024 Active Nabumetone 750 MG as directed Orally twice a day Active PARoxetine HCl 20 MG 1 tablet in the morning Orally Once a day for 30 day(s) Active Multivitamin Adult Extra C Active Hydroxychloroquine Sulfate 200 MG as directed Orally twice a day Active valACYclovir HCl 1 GM 1 tablet Orally On ce a day for 10 day(s) Active DULoxetine HCl 60 MG 1 capsule Orally twice a day for 30 day(s) Active Social History Tobacco Control (Standard) Question Answer Notes Additional Findings: Tobacco user e-cigarette Vital Signs Temperature 98.5 degrees Fahrenheit 08/06/19 25 Blood pressure systolic 120 mm Hg 08/06/19 25 Blood pressure diastolic 70 mm Hg 025 Heart Rate 85 /min 08/05/2024 Height 64.75 in 08/05/2024 Weight 209.0 lbs 08/05/2024 BMI 35.04 kg/m2 08/05/2024 Oximetry 95 % 08/05/2024 Height-cm 164.46 cm 08/05/2024 Weight-kg 94.8 kg 08/05/2024 Encounters Encounter Location Date Provider Diagnosis [facility] [address] [place] [address] 08/05/2024 Dalia Barber Rheumatoid arthritis without rheumatoid factor, multiple sites M06.09 ; Fibromyalgia M79.7 ; High risk medication use Z79.899 and Decreased GFR R94.4 Assessments Encounter Date Diagnosis (ICD Code) Assessment Notes Treatment Notes Treatment Clinical Notes Section Notes 08/05/2024 Rheumatoid arthritis without rheumatoid factor, multiple sites (ICD-10 - M06.09) continue arava, plaquenil, cymbalta and lyrica, return in 3 months, labs today 08/05/2024 Fibromyalgia (ICD-10 - M79.7) continue arava, plaquenil, cymbalta and lyrica, return in 3 months, labs today 08/05/2024 High risk medication use (ICD-10 - Z79.899) continue arava, plaquenil, cymbalta and lyrica, return in 3 months, labs today 08/05/2024 Decreased GFR (ICD-10 - R94.4) continue arava, plaquenil, cymbalta and lyrica, return in 3 months, labs today Plan Of Treatment Medication Medication Name Sig Start Date Stop Date Notes Leflunomide 20 MG 1 tablet Orally Once a day for 30 days Pregabalin 150 MG TAKE 1 CAPSULE BY [facility] TWICE DAILY for 30 days 08/05/2024 11/03/2024 Next Appt Details Follow Up: 3 Months, Reason: Provider Name:Dalia Barber, 11/04 11:45:00 AM, [address], [place], [address], Progress Notes * CHUYJereda BDOB:1965 (59 yo F)Acc No.[id number]:08/05/2024 Progress Notes Patient: Keara SANCHEZ B Provider: Eddie BARBER MD :1965 A ge:59 Y S ex:Female Date:08/05/2024 Address:[address] [place] [address] Pcp:Estrellita Han MD Subjective: * Chief Complaints: * Y d/2 month follow up/flcRheumatoid arthritis, fibromyalgiareferred by Dr. Estrellita Han * HPI: j oint pain: on arava 20mg/day and plaquenil 400mg/day, hands hurting, has been over using hands a lot, hands feel tight, am stiffness: 30 minutes She was diagnosed [...] * Medications: T akingMultivitamin Adult Extra C valACYclovir HCl 1 GM Tablet 1 tablet [...] tablet at bedtime Orally Once a day Leflunomide 20 MG Tablet 1 tablet Orally Once a day , stop date 08/31/2024Pregabalin 150 MG Capsule TAKE 1 CAPSULE BY MOUTH TWICE DAILY Medication List reviewed and reconciled with the patientTaking Multivitamin Adult Extra C Taking valACYclovir HCl 1 GM Tablet 1 [...] at bedtime Orally Once a day Taking Leflunomide 20 MG Tablet 1 tablet Orally Once a day , stop date 08/31/2024Taking Pregabalin 150 MG Capsule TAKE 1 CAPSULE BY MOUTH TWICE DAILY Medication List reviewed and reconciled with the patient * Allergies: A zithromycinLatexStatinsZemarbellao[Allergies Verified] Objective: * Vitals: B P:120/70mm Hg, HR:85/min, Temp:98.5F, Oxygen sat %:95%, Wt:209.0lbs, Wt- k.8kg, Ht:64.75in, Ht-cm:164.46cm, BMI:35.04Index, Body Surface Area:2.08. * Examination: G eneral Examination: General appearance: a lert, well-nourished and in no acute distress. Head: n ormocephalic, atraumatic. Eyes: n ormal. Skin: n o rash. Lungs: r espiratory effort normal. N eurology: Speech: n ormal. P sychiatry: Affect / mood: a ppropriate. R heumatology: b il PIPs and R 2nd MCP tender, no swelling, +pain in shoulders with abduction. Assessment: * Assessment: 1. R heumatoid arthritis without rheumatoid factor, multiple sites - M06.09 (Primary) ? 2 . F ibromyalgia - M79.7 3 . H igh risk medication use - Z79.899? 4. D ecreased GFR - R94.4 continue arava, plaquenil, c ymbalta and lyrica, return in 3 months, labs today Plan: * Treatment: * Procedure Codes: * Follow Up: 3 Months * Billing Information: * Visit Code: 02238 Office Visit, Est Pt., Level 4. * Procedure Codes: Images * PatientLetter 08/06/2024 08: 47:53 * Sign off status: Completed true * Provider: Eddie BARBER MD Date: 0 08/05/2024 Generated for Ryan cotter/Justin/Mimaitting on: 0 08/20/2024 02:20 AM CDT History and Physical Notes * HPI (History of Present Illness) Category Sub-Category Detail Notes Category Not es joint pain on arava 20mg/day and plaquenil 400mg/day, hands hurting, has been over using hands a lot, hands feel tight, am stiffness: 30 minutes She was diagnosed [...] Detail Notes Category Not es Rheumatology nissa PIPs and R 2nd MCP tender, no swelling, +pain in shoulders with abduction Neurology Speech: normal Psychiatry Affect / mood: appropriate General Examination General appearance: alert, w ell-nourished and in no acute distress Head: normocephalic, atrau matic Eyes: normal Lungs: respiratory effort n ormal Skin: no rash
--- OUTSIDE RECORDS SUMMARY | 2024-08-20 02:20 | XMS_ITS | Referral Summary ---
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
--- OUTSIDE RECORDS SUMMARY | 2024-08-20 02:20 | XMS_ITS ---
Author Organization [facility] daniel Address [address] [facility] [address] [place] [address] Care Team Providers Care Soccer Player Name Role Phone Guille BARBOSA, Estrellita Primary Care Provider Unav ailable Dalia Barber [phone] REASON FOR VISIT yd/3 month follow up/flc Encounters Encounter Location Date Provider Diagnosis [facility] [address] [address] [place] [address] 05/15/2024 Dalia Barber Plan Of Treatment Next Appt Details Provider Name:Dalia Barber, 11/04 11:45:00 AM, [address] [facility] [address], [place], [address], Progress Notes * VERAKeara BDOB:1965 (59 yo F)Acc No.[id number]:05/15/2024 Progress Notes Patient: Erika JALLOHKeara HERNÁNDEZ Provider: Eddie BARBER MD :1965 A ge:58 Y S ex:Female Date:05/15/2024 Address:[address], [address], [facility] Pcp:Estrellita Han MD Subjective: * Chief Complaints: * 1 . Yd/3 month follow up/flc. * Medical History: Objective: * Vitals: Assessment: Plan: * Treatment: * Billing Information: * Visit Code: * Procedure Codes: * Electronic signature of Dalia Barber MD on 08/20/2024 at 02:20 AM CDT Sign off status: Pending * Provider: Eddie BARBER MD Date: 0 05/15/2024 Generated for Ryan cotter/Justin/Saulo on: 0 08/20/2024 02:20 AM CDT
--- OUTSIDE RECORDS SUMMARY | 2024-08-20 02:21 | XMS_ITS | Patient Health Record ---
Author Organization [facility] daniel Address [address] [facility] [place] [address] Care Team Providers Care Fuel Cell Binder Name Role Phone Estrellita Han MD Primary Care Provider Unav Dalia Blackburn Unavailable [phone] Allergies Allergen (clinical drug ingredient) Drug/Non Drug Allergy documented on EMR Reaction Allergy Type Onset Date Status ezetimibe Zetia Unknown Drug Allergy Active azithromycin Azithromycin Unknown Drug Allergy A ctive Latex Latex Unknown Allergy Active Substance with 6-pgofdvd-2-methylgluta ryl-coenzyme A reductase inhibitor mechanism of action (substance) Statins Unknown Drug Allergy Active Results Component Value Reference Range Notes CMP(COMPREHENSIVE METABOLIC PANEL) Reviewed date:08/06/2024 08:47:53 AM Interpretation:Lab Result Generalized Performing Lab:[facility], [address], [place], [address] Notes/Report: Sodium 143 133-146 mmol/L Potassium 4.1 [...] 13-39 units/L Bilirubin, Total 0.4 0.2-1.2 mg/dL CBC W/DIFF Reviewed date:08/06/2024 08:47:53 AM Interpretation:Lab Result Generalized Performing Lab:[facility], [address] [place] [address], [address] Notes/Report: WBC 3.5 3.5-10.5 10'3/uL RBC 4.13 [...] the clinical context of the individual patient: [email or web address]://[email or web address].ct.org/ge [email or web address] eGFR Reviewed date:02/16/2024 12:16:27 PM Interpretation: Performing Lab:[facility] , [address] [place] [address]. [place] [address] Notes/Report: eGFR 72 >=60 mL/min/1.73 m2 Interpretive [...] Automated Reviewed date:02/16/2024 12:16:20 PM Interpretation: Performing Lab:[facility] , [address] [place] [address]. [facility] [address] Notes/Report: Neut Abs 2.4 1.5-6.5 K/cumm ImmGran Abs 0.0 0.0-0.1 K/cumm Lymphocyte Abs 1.9 0.8-3.3 K/cumm Anderson Abs 0.5 0.2-0.8 K/cumm Eos Abs 0.1 [...] Interpretive Data was last revised on 2017. Anderson Pct 9.3 Interpretive Data Percent cell count [...] Interpretive Data was last revised on 2017. G6PD Ql Reviewed date:02/16/2024 12:18:09 PM Interpretation: Performing Lab:[facility] , [address] [place] [address]. [facility] [address] Notes/Report: G6PD, Qual Normal Normal Interp data: G6PD activity should be interpreted in the context of a patient's hematocrit. Hematocrit < 20% may lead to a falsely deficient result, while hematocrit > 50% may lead to a falsely normal result. Current interpretive data was last revised on 2019. Testing performed by: [facility], [address] [place] [address] Creatine Kinase Reviewed date:02/16/2024 12:18:38 PM Interpretation: Performing Lab:[facility] , [facility] [facility] [place] [address] Notes/Report: Total CK 89 30-200 Units/L Comprehensive metabolic pane l (CMP) Reviewed date:02/16/2024 12:18:27 PM Interpretation: Performing Lab:[facility] , [facility]. [facility] [address] Notes/Report: Sodium 143 135-145 mmol/L Plasma Potassium [...] classification and Diagnosis of Diabetes Diabetes Care 2021; 46: S19-S40. Current interpretive data was last revised 2022. Total Calcium 9.4 8.5-10.3 mg/dL Total Bilirubin 0.3 0.1-1.2 mg/dL Plasma Total Protein 7.2 6.5-8.5 g/dL Albumin 4.5 3.5-5.0 g/dL Alkaline Phosphatase 118 40-130 Units/L ALT 13 7-45 Units/L AST 27 10-45 Units/L CBC w auto diff Reviewed date:02/16/2024 12:18:17 PM Interpretation: Performing Lab:[facility] , [address] [place] [address]. [place] [address] Notes/Report: WBC 4.8 3.8-9.9 K/cumm Hgb 14.0 11.9-15.5 g/dL Hct 42.4 35.6-45.5 % Platelet Ct 214 150-400 K/cumm MPV 11.1 9.1-12.3 fL RBC 4.31 3.90-5.20 M/cumm MCV 98.4 81.3-96.4 fL MCH 32.5 27.1-33.3 pg MCHC 33.0 32.3-35.7 g/dL RDW CV 13.8 11.1-14.9 % RDW SD 50.5 35.7-48.1 fL NRBC Abs Auto 0.00 0.00-0.01 K/cumm C Reactive Protein Reviewed date:02/16/2024 12:18:44 PM Interpretation: Performing Lab:[facility] , [address] [place] [address]. [place] [address] Notes/Report: C-Reactive Protein <3.0 <=10.0 mg/L MARIA GUAD[place]PE reflex titer pattern ALEXIS + dsDNA Reviewed date:02/17/2024 12:56:12 PM Interpretation: Performing Lab:[facility] , [address] [place] [address]. [facility] [address] Notes/Report: MARIA GUAD[place], Qual Negative Interpretive Data [...] last revised on 2019. Testing performed by: [facility], [address] [place]., [address] SSB Ab Reviewed date:02/16/2024 12:17:57 PM Interpretation: Performing Lab:[facility] , [address] [place] [address]. [facility] [address] Notes/Report: SS B Antibody <0.2 <=0.9 Ab Index Interpretive Data Negative: < 1.0 Ab Index Positive: > or = 1.0 Ab Index Current interpretive data was last revised on 2016. SSA Ab Reviewed date:02/16/2024 12:18:03 PM Interpretation: Performing Lab:[facility] , [address] [place] [address]. [facility] [address] Notes/Report: SS A Antibody <0.2 <=0.9 Ab Index Interpretive Data Negative: < 1.0 Ab Index Positive: > or = 1.0 Ab Index Current interpretive data was last revised on 2016. Sed Rate Reviewed date:02/16/2024 12:18:32 PM Interpretation: Performing Lab:[facility] , [address] [place] [address]. [facility] [address] Notes/Report: ESR 14 1-30 mm/hr Rheumatoid Factor Reviewed date:02/16/2024 12:18:51 PM Interpretation: Performing Lab:[facility] , [address] [place] [address]. [facility] [address] Notes/Report: RF, Sammy <10 <=15 IUnits/mL QTB Gold Reviewed date:02/17/2024 01:04:43 PM Interpretation: Performing Lab:[facility] , [facility]. [facility] [address] Notes/Report: QuantiFERON TB Gold Negative Negative No [...] Diagnosis of Tuberculosis in Adults and Children [Lewinsohn DM et. al. Clin. Infect. Dis. 2017;64(2):111-115]. The reference range for the 'TB1 Ag minus Nil Result' and 'TB2 Ag minus Nil Result' is an Interferon-gamma level <0.35 IU/mL. TB-Nil 0.02 TB2-Nil -0.02 Mitogen-Nil 9.97 NIL 0.03 Test Performed by: [facility] [address] [place] [address] Rn Lpn Cna: Smitha Angulo Ph.D.; CLIA# [id number] Reason For Referral No Information Medications Medication SIG (Take, Route, Frequency, Duration) Notes Start Date End Date Status traZODone HCl 150 MG 1 tablet at bedtime Orally Once a day for 30 day(s) Active Multivitamin Adult Extra C Active Leflunomide 20 MG 1 tablet Orally Once a day for 30 days Active Hydroxychloroquine Sulfate 200 MG as directed Orally twice a day Active Pregabalin 150 MG TAKE 1 CAPSULE BY MOUTH TWICE DAILY for 30 days 08/05/2024 11/03/2024 Active valACYclovir HCl 1 GM 1 tablet Orally On ce a day for 10 day(s) Active Nabumetone 750 MG as directed Orally twice a day Active DULoxetine HCl 60 MG 1 capsule Orally twice a day for 30 day(s) Active PARoxetine HCl 20 MG 1 tablet in the morning Orally Once a day for 30 day(s) Active Social History Tobacco Control (Standard) Question Answer Notes Additional Findings: Tobacco user e-cigarette Problems Problem Type SNOMED Code ICD Code Onset Dates Problem Status W/U Status Risk Notes Problem 717680689 Rheumatoid arthritis without rheumatoid factor, multiple sites (M06.09) Active confirmed Problem 837944640 Fibromyalgia (M79.7) Active confirmed Vital Signs Heart Rate 85 /min 08/05/2024 Temperature 98.5 degrees Fahrenheit 08/05/2024 Blood pressure diastolic 70 mm Hg 08/05/2024 Oximetry 95 % 08/05/2024 Height-cm 164.46 cm 08/05/2024 Weight-kg 94.8 kg 08/05/2024 Height 64.75 in 08/05/2024 Blood pressure systolic 120 mm Hg 08/05/2024 Weight 209.0 lbs 08/05/2024 BMI 35.04 kg/m2 08/05/2024 Encounters Encounter Location Date Provider Diagnosis [facility] [address] [address] 02/14/2024 Dalia Du Rheumatoid arthritis without rheumatoid factor, multiple sites M06.09 ; Fibromyalgia M79.7 and High risk medication use Z79.899 [place] [address] [address] 03/02/2024 Dalia Du Rheumatoid arthritis without rheumatoid factor, multiple sites M06.09 ; Fibromyalgia M79.7 ; High risk medication use Z79.899 and Decreased GFR R94.4 [place] [address] [address] 06/02/2024 Dalia Du Rheumatoid arthritis without rheumatoid factor, multiple sites M06.09 ; Fibromyalgia M79.7 ; High risk medication use Z79.899 and Decreased GFR R94.4 [place] [address] [address] 08/05/2024 Dalia Du Rheumatoid arthritis without rheumatoid factor, multiple sites [...] cymbalta and lyrica, return in 2 months 08/05/2024 Rheumatoid arthritis without rheumatoid factor, multiple sites (ICD-10 - M06.09) continue arava, plaquenil, cymbalta and lyrica, return in 3 months, labs today 02/14/2024 Rheumatoid arthritis without rheumatoid factor, multiple [...] referring this patient. cc Dr. Estrellita Han 08/05/2024 Fibromyalgia (ICD-10 - M79.7) continue arava, plaquenil, cymbalta and lyrica, return in 3 months, labs today 06/02/2024 Fibromyalgia (ICD-10 - M79.7) symptomatic, start [...] cymbalta and lyrica, return in 2 months 08/05/2024 High risk medication use (ICD-10 - Z79.899) continue arava, plaquenil, cymbalta and lyrica, return in 3 months, labs today 08/05/2024 Decreased GFR (ICD-10 - R94.4) continue arava, plaquenil, cymbalta and lyrica, return in 3 months, labs today 06/02/2024 Decreased GFR (ICD-10 - R94.4) symptomatic, start arava 20mg/day, continue plaquenil, cymbalta and lyrica, return in 2 months Plan Of Treatment Pending Test Test Name Order Date HLA-B27 ANTIGEN (528) 02/14/2024 Next Appt Details Provider Name:Dalia Schwartz, 11/04 11:45:00 AM, [address], [place], [address], Insurance Providers Payer Name Payer Address Payer Phone Subscriber Number Group Number Insured Name Patient Relationship to Insured Coverage Start Date Coverage End Date [facility] Choice Plus [address] [address] [place] [address] [id number] Keara Sharp Self - patient is the insured Medicare [address] [address] [place] [address] [id number] Keara Sharp Self - patient is the insured Medical (General) History Medical History History ICD Code seronegative rheumatoid arth ritis, fibromyalgia, asthma, anxiety, depression, pneumonia, hyperlipidemia, GERD, herpetic keratitis, seizure, headaches uterine cancer Surgical History Surgery Date(Month/Year) appendectomy, ear surgery, S I joint fusion, hysterectomy, sinus surgery, back surgery, breast cancer
--- OUTSIDE RECORDS SUMMARY | 2024-08-20 02:21 | XMS_ITS | Clinical Summary ---
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
[2024-08-20 10:19] VITALS: BP 132/78; PULSE 80; RESP 18; TEMP 36.8; O2SAT 96
[2024-08-20] MEDS: LACTATED RINGERS 1,000 ML 150 ML IV CONT (10:25)
--- NOTE | 2024-08-20 10:25 | P.PNAN_ITS ---
Anes - Initial Pre Proc Eval Procedure: Operation Date: 08/20/24 11:30 Proposed Procedures p Screening Colonoscopy - Shiva Shipley MD Date/Time: 08/20/24 10:25 Surgeon: Shiva Shipley MD Pre Op Diagnosis: Screening Patient Data Age: 59 Gender: F Height: 1.63 m Weight: 91.7 kg Last Vital Signs Temp 36.8 C 08/20/24 10:19 Pulse 80 08/20/24 10:19 Resp 18 08/20/24 10:19 BP 132/78 08/20/24 10:19 Pulse Ox 96 08/20/24 10:19 O2 Del Method Room Air 08/20/24 10:19 Allergies Allergy/AdvReac Type Severity Reaction Status Date / Time azithromycin Allergy Mild stomach Verified 08/20/24 10:17 pain latex Allergy Mild Rash Verified 08/20/24 10:17 rosuvastatin Allergy Unknown Muscle Verified 08/20/24 10:17 pain, severe headaches ezetimibe AdvReac Severe headache Verified 08/20/24 10:17 simvastatin AdvReac Severe headaches Verified 08/20/24 10:17 Home Medications ?Medication ?Instructions ?Recorded ?Confirmed ?Type triamcinolone acetonide 0.1 % 1 applic topical BID #80 grams 10/24/23 08/20/24 Rx topical cream nyumvtaz-sakoqny-dejk-lutein tablet 1 tablet PO DAILY 11/12/23 08/20/24 History duloxetine 60 mg capsule,delayed 60 mg PO BID #180 caps 02/05/24 08/20/24 Rx release hydroxychloroquine 200 mg tablet 400 mg (2 x 200 mg) PO DAILY #180 02/05/24 08/20/24 Rx tabs valacyclovir 1 gram tablet See Rx Instructions .Route 02/07/24 08/20/24 Rx .COMPLEX #90 tabs paroxetine HCl 20 mg tablet See Rx Instructions .Route 04/28/24 08/20/24 Rx .COMPLEX #180 tabs trazodone 150 mg tablet See Rx Instructions .Route 05/06/24 08/20/24 Rx .COMPLEX #90 tabs nabumetone 750 mg tablet 750 mg PO DAILY 05/07/24 08/20/24 History pilocarpine HCl 5 mg tablet 5 mg PO TID #90 tabs 05/07/24 08/20/24 Rx (Salagen (pilocarpine)) pregabalin 150 mg capsule 150 mg PO Q12H 05/07/24 08/20/24 History leflunomide 20 mg tablet 20 mg PO DAILY 07/07/24 08/20/24 History Patient hx anesthesia problems: none Family hx anesthesia problems: none Results Review: All pre-operative results and documents have been reviewed as part of the pre- operative evaluation. [facility] Past Medical History Medical History (Updated 08/19/24 @ 14:09 by Charles Ulloa, ) ADELIA (obstructive sleep apnea) Degenerative joint disease (DJD) of lumbar spine Bartholin's gland abscess Plantar fasciitis, bilateral Seronegative rheumatoid arthritis of both hands Trochanteric bursitis of both hips Neck and shoulder pain Pain, upper back Back pain Skin lesion of face Osteoarthritis of hands, bilateral Allergies Anxiety Hemoglobin A1c less than 7.0% March 2020 A1c = 5.9 Arthritis of shoulder region, degenerative Bilateral hand pain Bilateral shoulder pain Nicotine dependence History of colon polyps History of chicken pox Herpesviral keratitis Mild intermittent asthma with (acute) exacerbation Influenza Panic disorder Depression Herpes GERD (gastroesophageal reflux disease) Rectal polyp 2019 colonoscopy rectal polyp/ repeat in 5 years Pneumonia Bronchitis Asthma Hypercholesteremia NEGRETE (headache) Seizures Deviated septum Vertigo Surgical History Surgical History S/P fusion of sacroiliac joint History of sinus surgery (~2018) History of ear surgery ag 31 ( r ear nerve surgery/ no hearing on that side) History of spinal surgery (~2006) History of hysterectomy (~1993) partial History of appendectomy Family History Family History Mother Depression Family history of malignant neoplasm of uterus Family history of malignant neoplasm of breast in first degree relative Father Carcinoma of colon Sibling Cholangiocarcinoma of biliary tract Gallbladder cancer, carcinoma little sister stage 4 Social History Social History Social History: Caffeine- coffee, soda Smoking packs per day: 0.5 Smoking cigarettes per day: 10.0 Years smoked: 40 Smoking pack-years: 20.00 Smoking status: Former smoker Tobacco type: e-cigarettes/vaping Second hand tobacco smoke exposure: Yes Smoking end date: 04/01/20 Additional smoking assessment comments: Pt currently vapes Alcohol intake: current Alcohol use details: rarely Substance use: never Substance use type: does not use Other substance usage details: CBD gummies Do You Feel Safe in your Home?: Yes Lack of Transportation: YES Lack of Food: Never True Current Housing: I Have Housing Concerned About Future Housing: No Difficulty Paying Gas/Electric Bills: No Difficulty Paying for Meds: No Currently Unemployed: No Education: Associate Degree Difficulty w/ Childcare or Family Care: YES Living arrangements: with family Occupation/Education: occupation 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 Informed Consent: The patient's anesthetic plan and its attendant risks and benefits were discussed with the patient/family/POA. Questions were solicited and answers provided to the satisfaction of the patient/family/POA.
--- NOTE | 2024-08-20 11:14 | PM.IMHP ---
H&P: HPI History of Present Illness Date/Time: 08/20/24 11:14 Chief Complaint: Family history of colon cancer Narrative: This patient has family history of colorectal cancer. her father had colon cancer at age 62, and 2 of her sisters had polyps. In addition, the patient had polyps and her last colonoscopy 5 years ago. Review of Systems Review of Systems: All systems reviewed & are unremarkable except as noted in HPI and below PMFSH Past Medical History Medical History (Updated 08/19/24 @ 14:09 by Charles Ulloa, ) ADELIA (obstructive sleep apnea) Degenerative joint disease (DJD) of lumbar spine Bartholin's gland abscess Plantar fasciitis, bilateral Seronegative rheumatoid arthritis of both hands Trochanteric bursitis of both hips Neck and shoulder pain Pain, upper back Back pain Skin lesion of face Osteoarthritis of hands, bilateral Allergies Anxiety Hemoglobin A1c less than 7.0% March 2020 A1c = 5.9 Arthritis of shoulder region, degenerative Bilateral hand pain Bilateral shoulder pain Nicotine dependence History of colon polyps History of chicken pox Herpesviral keratitis Mild intermittent asthma with (acute) exacerbation Influenza Panic disorder Depression Herpes GERD (gastroesophageal reflux disease) Rectal polyp 2019 colonoscopy rectal polyp/ repeat in 5 years Pneumonia Bronchitis Asthma Hypercholesteremia NEGRETE (headache) Seizures Deviated septum Vertigo Surgical History Surgical History S/P fusion of sacroiliac joint History of sinus surgery (~2018) History of ear surgery ag 31 ( r ear nerve surgery/ no hearing on that side) History of spinal surgery (~2006) History of hysterectomy (~1993) partial History of appendectomy Family History Family History Mother Depression Family history of malignant neoplasm of uterus Family history of malignant neoplasm of breast in first degree relative Father Carcinoma of colon Sibling Cholangiocarcinoma of biliary tract Gallbladder cancer, carcinoma little sister stage 4 Social History Social History Social History: Caffeine- coffee, soda Smoking packs per day: 0.5 Smoking cigarettes per day: 10.0 Years smoked: 40 Smoking pack-years: 20.00 Smoking status: Former smoker Tobacco type: e-cigarettes/vaping Second hand tobacco smoke exposure: Yes Smoking end date: 04/01/20 Additional smoking assessment comments: Pt currently vapes Alcohol intake: current Alcohol use details: rarely Substance use: never Substance use type: does not use Other substance usage details: CBD gummies Do You Feel Safe in your Home?: Yes Lack of Transportation: YES Lack of Food: Never True Current Housing: I Have Housing Concerned About Future Housing: No Difficulty Paying Gas/Electric Bills: No Difficulty Paying for Meds: No Currently Unemployed: No Education: Associate Degree Difficulty w/ Childcare or Family Care: YES Living arrangements: with family Occupation/Education: occupation 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[employer], 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 Gender identity (if verbalized by the patient): Female Meds Home Medications and Allergies Home Medications ?Medication ?Instructions ?Recorded ?Confirmed ?Type triamcinolone acetonide 0.1 % 1 applic topical BID #80 grams 10/24/23 08/20/24 Rx topical cream kuosgdre-bqltiph-zaey-lutein tablet 1 tablet PO DAILY 11/12/23 08/20/24 History duloxetine 60 mg capsule,delayed 60 mg PO BID #180 caps 02/05/24 08/20/24 Rx release hydroxychloroquine 200 mg tablet 400 mg (2 x 200 mg) PO DAILY #180 02/05/24 08/20/24 Rx tabs valacyclovir 1 gram tablet See Rx Instructions .Route 02/07/24 08/20/24 Rx .COMPLEX #90 tabs paroxetine HCl 20 mg tablet See Rx Instructions .Route 04/28/24 08/20/24 Rx .COMPLEX #180 tabs trazodone 150 mg tablet See Rx Instructions .Route 05/06/24 08/20/24 Rx .COMPLEX #90 tabs nabumetone 750 mg tablet 750 mg PO DAILY 05/07/24 08/20/24 History pilocarpine HCl 5 mg tablet 5 mg PO TID #90 tabs 05/07/24 08/20/24 Rx (Salagen (pilocarpine)) pregabalin 150 mg capsule 150 mg PO Q12H 05/07/24 08/20/24 History leflunomide 20 mg tablet 20 mg PO DAILY 07/07/24 08/20/24 History Allergies Allergy/AdvReac Type Severity Reaction Status Date / Time azithromycin Allergy Mild stomach Verified 08/20/24 10:17 pain latex Allergy Mild Rash Verified 08/20/24 10:17 rosuvastatin Allergy Unknown Muscle Verified 08/20/24 10:17 pain, severe headaches ezetimibe AdvReac Severe headache Verified 08/20/24 10:17 simvastatin AdvReac Severe headaches Verified 08/20/24 10:17 Vital Signs Vital Signs - 24 hr 08/20/24 10:19 Temperature 98.2 F Pulse Rate 80 Respiratory Rate 18 Blood Pressure 132/78 Pulse Oximetry 96 Oxygen Delivery Room Air Exam Const: General: cooperative and healthy appearing Resp: Effort & Inspection: normal respiratory effort and able to speak in complete sentences Auscultation: clear to auscultation bilaterally Cardio: Rate: regular rate Rhythm: regular rhythm GI: Inspection: normal to inspection GI Palp: No No hepatosplenomegaly present Auscultation: normal bowel sounds Rectal Exam: deferred Skin: General skin exam: normal color Psych: Appearance: grossly normal Mental Status: mental status grossly normal Assessment and Plan Assessment and plan (1) Family history of colon cancer in father: Code(s): Z80.0 - Family history of malignant neoplasm of digestive organs Status: Acute Assessment and Plan: The patient is deemed a good candidate for the procedure. Consent signed. Will proceed.
[2024-08-20 11:34] VITALS: BP 110/68; PULSE 71; RESP 14; O2SAT 97
[2024-08-20 11:44] VITALS: BP 121/68; PULSE 70; RESP 25; O2SAT 99
[2024-08-20 11:54] VITALS: BP 117/68; PULSE 65; RESP 20; O2SAT 96
== END 2024-08-20 12:03 | disposition home or self-care (01) ==
PROVIDERS: PCP Family Medicine; Visit Provider Internal Medicine Gastroenterology
PROC: 0DJD8ZZ Inspection of Lower Intestinal Tract, Via Natural or Artificial Opening Endoscopic (ICD-10-PCS; CPT 45378; principal; 2024-08-20 11:30)
DX: Z12.11 Encounter for screening for malignant neoplasm of colon (principal); K64.8 Other hemorrhoids; G47.33 Obstructive sleep apnea (adult) (pediatric); M47.896 Other spondylosis, lumbar region; M06.042 Rheumatoid arthritis without rheumatoid factor, left hand; M06.041 Rheumatoid arthritis without rheumatoid factor, right hand; M70.62 Trochanteric bursitis, left hip; M70.61 Trochanteric bursitis, right hip; M19.042 Primary osteoarthritis, left hand; M19.041 Primary osteoarthritis, right hand; F41.9 Anxiety disorder, unspecified; J45.901 Unspecified asthma with (acute) exacerbation; F41.0 Panic disorder [episodic paroxysmal anxiety]; F32.A Depression, unspecified; K21.9 Gastro-esophageal reflux disease without esophagitis; E78.00 Pure hypercholesterolemia, unspecified; M19.019 Primary osteoarthritis, unspecified shoulder; F17.290 Nicotine dependence, other tobacco product, uncomplicated; F12.90 Cannabis use, unspecified, uncomplicated; E66.9 Obesity, unspecified; Z68.34 Body mass index [BMI] 34.0-34.9, adult; Z98.890 Other specified postprocedural states; Z98.1 Arthrodesis status; Z86.0100 Personal history of colon polyps, unspecified; Z83.719 Family history of colon polyps, unspecified; Z80.3 Family history of malignant neoplasm of breast; Z80.0 Family history of malignant neoplasm of digestive organs; Z80.49 Family history of malignant neoplasm of other genital organs
CPT/HCPCS: 45378; J2003; J2704; J7120

== ENCOUNTER 2024-09-10 11:21 | Outpatient (CLI) | payer OTHER, MEDICARE, SELFPAY ==
--- NOTE | ~2024-09-10 | XR_ITS ---
AP and lateral views view of the bilateral hips Clinical history: Pain Findings: No acute fracture or dislocation is seen. Osseous alignment is anatomic. Bilateral hip join ts and right SI joint are intact. There is orthopedic fusion across the left SI joint.. Soft tissues are unremarkable. Impression: No acute abnormality. Orthopedic fusion across the left SI joint. Reviewed, dictated and finalized at location . Impression: No acute abnormality. Orthopedic fusion across the left SI joint.
== END 2024-09-10 11:22 | disposition home or self-care (01) ==
PROVIDERS: PCP Physical Medicine & Rehabilitation Pain Medicine; Visit Provider Physical Medicine & Rehabilitation Pain Medicine
DX: M25.552 Pain in left hip (principal); M25.551 Pain in right hip
CPT/HCPCS: 73521

== ENCOUNTER 2024-12-18 13:13 | Outpatient (CLI) | payer OTHER, MEDICARE, SELFPAY ==
--- NOTE | ~2024-12-18 | MM_ITS ---
EXAMINATION: MM screening [facility] BI w will HISTORY: Screening TECHNIQUE: Craniocaudal and mediolateral oblique 3-D tomosynthesis images were obtained and synthetic 2-D images were generated. CAD analysis was submitted and interpreted. COMPARISON: Comparison to multiple prior studies sequentially, with oldest reviewed study dated 09/28/2019. BREAST PARENCHYMAL COMPOSITION: There are scattered areas of fibroglandular density. FINDINGS: There is no evidence of suspicious mass, calcification, or architectural distortion to suggest malignancy in either breast. Scattered benign-appearing calcifications are present. IMPRESSION: 1. No mammographic evidence of malignancy. 2. Recommend routine screening mammography in one year. BI-RADS Category 2: Benign finding(s). Reviewed, dictated and finalized at location B.
--- OUTSIDE RECORDS SUMMARY | 2024-12-18 13:16 | XMS_ITS | Clinical Summary ---
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 Gender Identity Not on file Sexual Orientation Not on file Plan of Treatment Health Maintenance Due Date Last Done Comments Breast Cancer Screening-Mammogram 1966 Cervical Cancer Screening 1966 Colon Cancer Screening-Colonoscopy 1966 Depression Screening 1966 Hepatitis B Screening 1984 Regular Well Visit/Exam 18-64 1984 Zoster Vaccine (1 of 2) 2016 Covid-19 Vaccine (3 - season) 2024 07/27/2020, 07/05/2020 Influenza Vaccine (#1) 2024 4, 01/02/2023, 01/24/2022, Additional history exists DTaP/Tdap/Td Vaccine (2 - Td or Tdap) 09/07/2029 09/08/2019 Pneumococcal vaccine <65 Aged Out 08/09/2022, 0504/2022 No longer eligible based on patient's age to complete this topic Hepatitis C Screening Completed 08/27/2024 Procedures Procedure Name Priority Date/Time Associated Diagnosis Comments HEPATITIS C ANTIBODY Routine 08/27/2024 2:09 PM CDT High risk medication use 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 Does NOT exclude the possibility of recent exposure to HCV. Equivocal: Equivocal for HCV antibodies. Supplemental molecular testing will be automatically performed to determine infection status in accordance with current CDC screening recommendations. Reactive: Positive for HCV antibodies. This may represent current or past HCV infection. Supplemental molecular testing will be automatically performed to determine current infection status in accordance with current CDC screening recommendations. Interpretive data was last revised on 2019. Testing performed by: [facility], [address] [place] [address]., [id number] Blood 08/27/2024 2:09 PM CDT 08/27/2024 6:06 PM CDT Dalia Schwartz MD LAB MICROBIOLOGY - GENERAL ORDER JESSICA Final Result Performing Organization Address City/State/[facility] Co de Phone Number [facility] ([place]) [address] [facility] [place] [address] from Last 3 Months or Most Recently Relevant to Health Maintenance Insurance [facility] HMO/PPO Address: [facility] [address] [place] [address] MEDICARE Care Teams Cephalometric Technician Relationship Specialty Start Date End Date Estrellita Han MD PCP - General 08/01/16
== END 2024-12-18 13:14 | disposition home or self-care (01) ==
LOC: CHSIMG 13:14
PROVIDERS: PCP Family Medicine; Visit Provider Family Medicine
DX: Z12.31 Encounter for screening mammogram for malignant neoplasm of breast (principal)
CPT/HCPCS: 77063; 77067

== ENCOUNTER 2025-01-26 10:52 | Outpatient (CLI) | payer OTHER, MEDICARE, SELFPAY ==
--- NOTE | ~2025-01-26 | CT_ITS ---
EXAMINATION: CT thoracic spine wo con COMPARISON: None HISTORY: Radiculopathy, thoracolumbar region TECHNIQUE: Axial images were obtained through the spine without IV contrast. Coronal, sagittal reconstruction images were obtained from the axial views. CT scan performed using dose optimization techniques including the following automated exposure control; adjustment of mA and/or kV; use of iterative reconstruction technique. Automatic exposure control was used to reduce radiation dose. Permanent radiation dose record is archived to PACS. FINDINGS: Moderate loss of vertebral height, no fracture or subluxation Moderate to severe loss of disc height throughout, no severe canal or foraminal stenosis identified Soft tissues calcified granulomas in the visualized lung parenchyma with calcified mediastinal and hilar lymph nodes probably sequelae of prior granulomatous disease Left adrenal nodule 1.2 x 1.2 cm Hounsfield units 13 incompletely evaluated, follow-up suggested to assess stability Impression: Degenerative changes. Incidental findings above Reviewed, dictated and finalized at location P. Impression: Degenerative changes. Incidental findings above
== END 2025-01-26 10:53 | disposition home or self-care (01) ==
PROVIDERS: PCP Family Medicine; Visit Provider Physical Medicine & Rehabilitation Pain Medicine
DX: M54.15 Radiculopathy, thoracolumbar region (principal); M51.34 Other intervertebral disc degeneration, thoracic region
CPT/HCPCS: 72128